=== PATIENT | female | born 1985 | race Caucasian/White ===

== ENCOUNTER 2016-06-19 13:54 | Inpatient (IN) | payer OTHER ==
--- NOTE | 2016-06-19 13:57 | PDOC ---
History of Present Illness - General History Source: Patient Exam Limitations: No Limitations - History of Present Illness Initial Comments: 06/19/16 14:38 The patient is a 31 year old female, with a significant past medical history of an eating disorder, who presents to the emergency department with nausea, vomiting, diarrhea, and abdominal pain since Tuesday. The patient reports that she is in a treatment center for an eating disorder for the past 16 days, and Tuesday night she began experiencing severe and constant abdominal pain which she describes as cramping sensation in nature. She reports that this cramping is localized to her abdomen and is a 7/10 in severity without modifying factors . She reports that the abdominal pain is exacerbated by eating food and movement. She also reports associated abdominal distention and exhaustion. The patient states that she Tuesday, Tuesday, and Tuesday she had 10 episodes of vomiting, and she had multiple episodes of diarrhea. She reports that she did not have any episodes of vomiting or diarrhea yesterday and is not nauseous upon presentation to the ED. She denies chest pain, shortness of breath, headache and dizziness. She denies fever, chills, hematochezia and mucus in her stool. She denies taking any antibiotics for the last few months. She reports that she went to [facility] for [employer] but has not traveled since. Last Menstrual Period: 06/03/16 Allergies: None Past surgical history: None Social History: Current everyday smoker (5 cigarettes per day), marijuana, last alcoholic drinks was 2 weeks ago. <Ashley Flores - Last Filed: 06/19/16 16:41> <Kenneth Armando - Last Filed: 06/19/16 16:47> - General Chief Complaint: Vomiting/Diarrhea Stated Complaint: VOMITING,DIARRHEA,ABD PAIN Time Seen by Provider: 06/19/16 13:56 Past History <Ashley Flores - Last Filed: 06/19/16 16:41> <Kenneth Armando - Last Filed: 06/19/16 16:47> - Past Medical History Allergies/Adverse Reactions: Allergies Allergy/AdvReac Type Severity Reaction Status Date / Time No Known Allergies Allergy Verified 06/19/16 13:55 Home Medications: Ambulatory Orders Escitalopram Oxalate [Lexapro -] 20 mg PO DAILY 01/21/17 L.acidoph,Paracasei, B.lactis [Probiotic] 1 each PO DAILY 06/19/16 Multivitamin [Poly-Vitamin] 1 each PO DAILY 06/19/16 Ondansetron [Zofran *Odt*] 8 mg SL TID PRN #4 od.tablet 06/19/16 Review of Systems - Review of Systems Able to Perform ROS?: Yes Comments:: 06/19/16 14:38 CONSTITUTIONAL: +exhaustion Absent: fever, chills, diaphoresis, generalized weakness, loss of appetite HEENT: Absent: rhinorrhea, nasal congestion, throat pain, throat swelling, difficulty swallowing, mouth swelling, ear pain, eye pain, visual Changes CARDIOVASCULAR: Absent: chest pain, syncope, palpitations, irregular heart rate, lightheadedness , peripheral edema RESPIRATORY: Absent: cough, shortness of breath, dyspnea with exertion, orthopnea, wheezing, stridor, hemoptysis GASTROINTESTINAL: +abdominal pain, +abdominal distention, +nausea, +vomiting, + diarrhea Absent: constipation, melena, hematochezia GENITOURINARY: Absent: dysuria, frequency, urgency, hesitancy, hematuria, flank pain, genital pain MUSCULOSKELETAL: Absent: myalgia, arthralgia, joint swelling SKIN: Absent: rash, itching, pallor HEMATOLOGIC/IMMUNOLOGIC: Absent: easy bleeding, easy bruising, lymphadenopathy, frequent infections ENDOCRINE: Absent: unexplained weight gain, unexplained weight loss, heat intolerance, cold intolerance NEUROLOGIC: Absent: headache, focal weakness or paresthesias, dizziness, unsteady gait, seizure, mental status changes, bladder or bowel incontinence PSYCHIATRIC: Absent: anxiety, depression, suicidal or homicidal ideation, hallucinations. <Ashley Flores - Last Filed: 06/19/16 16:41> *Physical Exam - Vital Signs Last Vital Signs Temp Pulse Resp BP Pulse Ox 97.8 F 95 H 18 126/95 100 06/19/16 13:55 06/19/16 13:55 06/19/16 13:55 06/19/16 13:55 06/19/16 13:55 - Physical Exam Comments: 06/19/16 14:39 GENERAL: Well developed, well nourished. Awake and alert. No acute distress. HEENT: +slightly dry mucous membranes Normocephalic, atraumatic. PERRLA, EOMI. No conjunctival pallor. Sclera are non- icteric. Moist mucous membranes. Oropharynx is clear. NECK: Supple. Full ROM. No JVD. Carotid pulses 2+ and symmetric, without bruits. No thyromegaly. No lymphadenopathy. CARDIOVASCULAR: Regular rate and rhythm. No murmurs, rubs, or gallops. Distal pulses are 2+ and symmetric. PULMONARY: No evidence of respiratory distress. Lungs clear to auscultation bilaterally. No wheezing, rales or rhonchi. ABDOMINAL: +tender to superficial and deep palpation in the epigastric and deep upper quadrant, +minimal abdominal distention Soft. No rebound or guarding. No organomegaly. Normoactive bowel sounds. MUSCULOSKELETAL Normal range of motion at all joints. No bony deformities or tenderness. No CVA tenderness. EXTREMITIES: No cyanosis. No clubbing. No edema. No calf tenderness. SKIN: Warm and dry. Normal capillary refill. No rashes. No jaundice. NEUROLOGICAL: Alert, awake, appropriate. Cranial nerves 2-12 intact. No deficits to light touch and temperature in face, upper extremities and lower extremities. No motor deficits in the in face, upper extremities and lower extremities. Normoreflexic in the upper and lower extremities. Normal speech. Toes are downgoing bilaterally. Gait is normal without ataxia. PSYCHIATRIC: Cooperative. Good eye contact. Appropriate mood and affect. No recent ingestion of river, stream or [place] water. No recent ingestion of raw meat. No recent ingestion of shellfish. No antibiotic use in the past 6 months. No recent travel outside of the [facility]. No sick contacts with similar symptoms. No blood or mucous noted in the stools. <Ashley Flores - Last Filed: 06/19/16 16:41> Heart Score/ECG Review - ECG Intrepretation Comment:: 06/19/16 15:37 Normal sinus rhythm at 90, normal axis, normal intervals, no ST changes <Kenneth Armando - Last Filed: 06/19/16 16:47> ED Treatment Course - LABORATORY CBC & Chemistry Diagram: 06/19/16 14:30 06/19/16 14:30 - RADIOLOGY Radiograph Interpretation: 06/19/16 16:40 CT / Abdomen and Pelvis CT With Contrast Reported by: Dr. Rubén Escobedo Reviewed by: Dr. Kenneth Armando Impression: Moderate small bowel obstruction dilation suspicious for partial SBO. Clinical correlation and follow-up recommended. <Ashley Flores - Last Filed: 06/19/16 16:41> - LABORATORY CBC & Chemistry Diagram: 06/19/16 14:30 06/19/16 14:30 <Kenneth Armando - Last Filed: 06/19/16 16:47> Medical Decision Making - Medical Decision Making 06/19/16 14:04 The patient is well-appearing and in no acute distress There is clinical evidence of mild dehydration Abdomen is minimally tender in the right upper quadrant and epigastrium Will begin IV fluid resuscitation Will obtain labs, urinalysis 06/19/16 15:33 Chemistries noted including: Hyponatremia Hypomagnesemia Hyperphosphatemia On repeat exam her abdomen remains distended Will will image abdomen and pelvis with CT We will replete magnesium 06/19/16 16:00 The patient is unable to drink further contrast Will CT without more oral contrast 06/19/16 16:45 CT noted with evidence of partial small bowel obstruction Will admit Will consult surgery Clinical impression: Partial small bowel obstrauction Hyponatremia Hypomagnesemia Hyperphosphatemia Case discussed in detail with admitting provider including history, physical exam and ancillary studies. Admitting physician has assumed care for the patient, will follow all pending diagnostics and will complete the evaluation and treatment. A portion of this note was documented by scribe services under my direction. I have reviewed the details of the note, within reason, and agree with the documentation with the following case summary and management plan written by me. <Kenneth Armando - Last Filed: 06/19/16 16:47> *DC/Admit/Observation/Transfer - Attestations Scribe Attestion: 06/19/16 14:39 Documentation prepared by JULISSA Araujo, acting as medical lab director for Kenneth Armando MD. <Ashley Flores - Last Filed: 06/19/16 16:41> - Discharge Dispostion Admit: Yes <Kenneth Armando - Last Filed: 06/19/16 16:47> Diagnosis at time of Disposition: Partial small bowel obstruction - Discharge Dispostion Condition at time of disposition: Improved - Prescriptions Prescriptions: Ondansetron [Zofran *Odt*] 8 mg SL TID PRN #4 od.tablet PRN Reason: Nausea & Vomiting - Patient Instructions Printed Discharge Instructions: Nausea and Vomiting-Adult, Diarrhea Additional Instructions: Return to the emergency department immediately with ANY new, persistent or worsening symptoms. You MUST call and follow up with your doctor tomorrow. Please make sure your doctor reviews the results of your emergency department evaluation.
[2016-06-19] MEDS ORDERED: DEXTROSE 5%-NORMAL SALINE 1,000 ML IV ONE (14:17)
[2016-06-19 14:37] LABS: MCH 29.6 pg (25.7-33.7); WHITE BLOOD COUNT 7.2 K/mm3 (4.0-10.0)
[2016-06-19 14:43] LABS: MEAN CELL VOLUME 89.8 fl (80-96); MEAN PLT VOLUME 6.8 fl (7.5-11.1); PLATELET COUNT 594 K/MM3 (134-434); RDW 14.5 % (11.6-15.6)
[2016-06-19 14:48] LABS: URINE BILIRUBIN Negative (NEGATIVE); URINE BLOOD Negative (NEGATIVE); URINE GLUCOSE (UA) Negative (NEGATIVE); URINE KETONE Negative (NEGATIVE); URINE LEUK ESTERASE Trace (NEGATIVE); URINE PROTEIN Negative (NEGATIVE); URINE UROBILINOGEN 1.0 E.U/dl (0.2-1.0)
[2016-06-19 14:50] LABS: URINE APPEARANCE CLOUDY; URINE COLOR AMBER
[2016-06-19 14:52] LABS: ALBUMIN 3.2 g/dl (3.5-5.0); ALK PHOS 51 U/L (32-92); ANION GAP 10 (8-16); BILIRUBIN,TOTAL 0.3 mg/dl (0.2-1.0); CALCIUM 9.6 mg/dl (8.4-10.2); CO2 30 mmol/L (22-28); CREATININE 0.6 mg/dl (0.6-1.3); GLUCOSE,RANDOM 108 mg/dl (74-106); MAGNESIUM 1.6 mg/dL (1.8-2.4); PHOSPHOROUS 6.3 mg/dl (2.5-4.6); SGOT/AST 15 U/L (10-42); SGPT/ALT 11 U/L (10-40); TOT PROT 6.5 g/dl (6.4-8.3)
[2016-06-19] MEDS ORDERED: MAGNESIUM SULFATE 2 GM in SODIUM CHLORIDE 100 ML IVPB ONE (15:33)
[2016-06-19 15:38] LABS: URINE NITRITE Positive (NEGATIVE)
[2016-06-19] MEDS ORDERED: SODIUM CHLORIDE 1,000 ML IV SCH (15:45)
[2016-06-19 15:58] LABS: PLATELET ESTIMATE INCREASED (NORMAL)
[2016-06-19] MEDS ORDERED: DEXTROSE 5%-NORMAL SALINE 1,000 ML IV SCH (17:00)
[2016-06-19 19:00] VITALS: BMI 15.0
--- NOTE | 2016-06-19 19:18 | HP ---
CHIEF COMPLAINT: Nausea, Vomiting, Abdominal Pain, Abdominal Distention PCP: HISTORY OF PRESENT ILLNESS: This is a 31 year old woman with a past medical history of Eating Disorder. Who presents to the emergency department with N/V/D, abdominal cramping, abdominal distention x 6 days. Patient is currently under treatment for the last 16 days at an Eating Disorder facility. Patient reports the abdominal cramping started on Tuesday given Mylanta, then Tuesday- Tuesday she started having non-bilious vomiting with diarrhea. Patient reports the vomiting has resolved and the diarrhea is less frequent. Patient denies fever, chills, cough, dizziness, CP, constipation, dysuria. ER course was notable for: (1) Na 129 (2) UA- cloudy, +nitrate, +trace leukocyte esterase (3) Recent Travel: [facility] 05/23- 05/27 PAST MEDICAL HISTORY: See HPI PAST SURGICAL HISTORY: None Social History: Smokin-5 Cigarettes/day Alcohol: Occasional- Mixed Drinks Drugs: Socially- Marijuana Family History: Father: Hypercholesterolemia Allergies No Known Allergies Allergy (Verified 06/19/16 13:55) HOME MEDICATIONS: Medication Instructions Recorded Escitalopram Oxalate [Lexapro -] 20 mg PO DAILY 06/19/16 L.acidoph,Paracasei, B.lactis 1 each PO DAILY 06/19/16 [Probiotic] Multivitamin [Poly-Vitamin] 1 each PO DAILY 06/19/16 [place]-3 Fatty Acids [Fish Oil] 720 mg PO DAILY 06/19/16 Ondansetron [Zofran *Odt*] 8 mg SL TID PRN #4 od.tablet 06/19/16 Prochlorperazine Maleate 5 mg PO PRN 06/19/16 [Compazine] Valerian Root 1,060 mg PO HS PRN 06/19/16 REVIEW OF SYSTEMS CONSTITUTIONAL: Absent: fever, chills, diaphoresis, generalized weakness, malaise, loss of appetite, weight change HEENT: Absent: rhinorrhea, nasal congestion, throat pain, throat swelling, difficulty swallowing, mouth swelling, ear pain, eye pain, visual changes CARDIOVASCULAR: Absent: chest pain, syncope, palpitations, irregular heart rate, lightheadedness , peripheral edema RESPIRATORY: Absent: cough, shortness of breath, dyspnea with exertion, orthopnea, wheezing, stridor, hemoptysis GASTROINTESTINAL: abdominal pain, abdominal distension, nausea, vomiting, diarrhea Absent: constipation, melena, hematochezia GENITOURINARY: Absent: dysuria, frequency, urgency, hesitancy, hematuria, flank pain, genital pain MUSCULOSKELETAL: Absent: myalgia, arthralgia, joint swelling, back pain, neck pain SKIN: Absent: rash, itching, pallor HEMATOLOGIC/IMMUNOLOGIC: Absent: easy bleeding, easy bruising, lymphadenopathy, frequent infections ENDOCRINE: Absent: unexplained weight gain, unexplained weight loss, heat intolerance, cold intolerance NEUROLOGIC: Absent: headache, focal weakness or paresthesias, dizziness, unsteady gait, seizure, mental status changes, bladder or bowel incontinence PSYCHIATRIC: Absent: anxiety, depression, suicidal or homicidal ideation, hallucinations. PHYSICAL EXAMINATION GENERAL: Cachectic, awake, alert, and fully oriented, in no acute distress. HEAD: Normal with no signs of trauma. EYES: Pupils equal, round and reactive to light, extraocular movements intact, sclera anicteric, conjunctiva clear. No lid lag. EARS, NOSE, THROAT: Ears normal, nares patent, oropharynx clear without exudates. Moist mucous membranes. NECK: Normal range of motion, supple without lymphadenopathy, JVD, or masses. LUNGS: Breath sounds equal, clear to auscultation bilaterally. No wheezes, and no crackles. No accessory muscle use. HEART: Regular rate and rhythm, normal S1 and S2 without murmur, rub or gallop. ABDOMEN: Soft, tender to epigastrium, umbilical areas, mildly distended, hypoactive bowel sounds, no guarding, no rebound, no masses. No hepatomegaly or splenomegaly. MUSCULOSKELETAL: Normal range of motion at all joints. No bony deformities or tenderness. No CVA tenderness. UPPER EXTREMITIES: 2+ pulses, warm, well-perfused. No cyanosis. No clubbing. Cap refill <2 seconds. No peripheral edema. LOWER EXTREMITIES: 2+ pulses, warm, well-perfused. No calf tenderness. No peripheral edema. NEUROLOGICAL: Cranial nerves II-XII intact. Normal speech. Normal gait. PSYCHIATRIC: Cooperative. Good eye contact. Appropriate mood and affect. SKIN: Warm, dry, normal turgor, tattoos, no rashes or lesions noted. Laboratory Results - last 24 hr 06/19/16 06/19/16 06/19/16 14:30 14:30 14:35 WBC 7.2 RBC 3.86 Hgb 11.4 Hct 34.6 MCV 89.8 MCHC 33.0 RDW 14.5 Plt Count 594 H D MPV 6.8 L Neutrophils % 61.0 D Lymphocytes % 19.0 D Monocytes % 15.0 H D Eosinophils % 2.0 Band Neutrophils 3.0 Platelet Estimate Increased Sodium 129 L Potassium 3.7 Chloride 89 L Carbon Dioxide 30 H Anion Gap 10 BUN 11 Creatinine 0.6 Creat Clearance w eGFR > 60 Random Glucose 108 H Calcium 9.6 Phosphorus 6.3 H D Magnesium 1.6 L D Total Bilirubin 0.3 AST 15 ALT 11 Alkaline Phosphatase 51 Total Protein 6.5 Albumin 3.2 L Lipase 32 Urine Color Pallavi Urine Appearance Cloudy Urine pH 7.0 Ur Specific [place] 1.010 Urine Protein Negative Urine Glucose (UA) Negative Urine Ketones Negative Urine Blood Negative Urine Nitrite Positive Urine Bilirubin Negative Urine Urobilinogen 1.0 e.u/dl Ur Leukocyte Esterase Trace Urine HCG, Qual 06/19/16 14:35 WBC RBC Hgb Hct MCV MCHC RDW Plt Count MPV Neutrophils % Lymphocytes % Monocytes % Eosinophils % Band Neutrophils Platelet Estimate Sodium Potassium Chloride Carbon Dioxide Anion Gap BUN Creatinine Creat Clearance w eGFR Random Glucose Calcium Phosphorus Magnesium Total Bilirubin AST ALT Alkaline Phosphatase Total Protein Albumin Lipase Urine Color Urine Appearance Urine pH Ur Specific [place] Urine Protein Urine Glucose (UA) Urine Ketones Urine Blood Urine Nitrite Urine Bilirubin Urine Urobilinogen Ur Leukocyte Esterase Urine HCG, Qual Negative RADIOLOGY Radiograph Interpretation: 06/19/16 16:40 CT / Abdomen and Pelvis CT With Contrast Reported by: Dr. Rubén Escobedo Impression: Moderate small bowel obstruction dilation suspicious for partial SBO. Clinical correlation and follow-up recommended. ASSESSMENT/PLAN: This is a 31 year old woman with a PMHx of: Eating Disorder. Who presents to the ED with abdominal pain, N/V/D. Admitted for Partial SBO for further evaluation of their emergent condition Plan: 1. Partial SBO - Likely due to colitis - CTAP- Moderate small bowel obstruction dilation suspicious for partial SBO. - NPO - IVF - Appreciate Surgical Consult - Pain Mgmt- Ofirmev IV prn 2. Hyponatremia - Likely due to hypovalemic status secondary to gastric losses - Given NS 1.5L bolus in ED - Continue IVF - Na correction 132 3. Hypomagnesemia - Likely due to gastric loss - Repleted with Mg Sulfate 2gm - EKG- Normal sinus rhythm at 90, normal axis, normal intervals, no ST changes - Monitor Magnesium 4. Asymptomatic Bacteriuria - Patient denies dysuria, burning, and frequency - On exam: no CVA tenderness - Will not treat with Empiric ABX unless patient becomes symptomatic or condition worsens. 5. Eating Disorder - Continue treatments in outpatient upon d/c 6. F/E/N - D5NS@100ml/hr - Mg repleted, Na monitor - NPO 7. DVT/PPI Prophylaxis - OOB - SCDs - PPI Code Status: Patient is a Full Code Problem List - Problem (1) Partial small bowel obstruction Code(s): K56.69 - OTHER INTESTINAL OBSTRUCTION (2) Vomiting and diarrhea Code(s): R11.10 - VOMITING, UNSPECIFIED R19.7 - DIARRHEA, UNSPECIFIED (3) Eating disorder Code(s): F50.9 - EATING DISORDER, UNSPECIFIED (4) Hyponatremia Code(s): E87.1 - HYPO-OSMOLALITY AND HYPONATREMIA (5) Hypomagnesemia Code(s): E83.42 - HYPOMAGNESEMIA (6) DVT prophylaxis Code(s): AXD8002 - Visit type - Emergency Visit Emergency Visit: Yes ED Registration Date: 06/19/16 Care time: The patient presented to the Emergency Department on the above date and was hospitalized for further evaluation of their emergent condition. - New Patient This patient is new to me today: Yes Date on this admission: 06/19/16 - Critical Care Critical Care patient: No
[2016-06-19 21:13] LABS: CALCIUM 8.5 mg/dl (8.4-10.2); CREATININE 0.6 mg/dl (0.6-1.3)
[2016-06-20] MEDS ORDERED: ACETAMINOPHEN 1000 MG/100 ML VIAL (NON FORMULARY) IVPB PRN ×2 (03:31→03:43)
[2016-06-20 07:55] LABS: MCH 30.8 pg (25.7-33.7); MCHC 33.4 g/dl (32.0-36.0); MEAN CELL VOLUME 92.2 fl (80-96); MEAN PLT VOLUME 6.9 fl (7.5-11.1); PLATELET COUNT 420 K/MM3 (134-434); RDW 15.2 % (11.6-15.6); WHITE BLOOD COUNT 6.4 K/mm3 (4.0-10.0)
[2016-06-20 08:29] LABS: CALCIUM 8.1 mg/dL (8.5-10.1)
[2016-06-20 08:31] LABS: CREATININE 0.4 mg/dL (0.55-1.02)
[2016-06-20 08:38] LABS: INR 1.03 (0.82-1.09); PROTHROMBIN TIME (PATIENT) 11.3 SEC (9.98-11.88)
--- NOTE | 2016-06-20 15:02 | CONSULT ---
Consult Consult Specialty:: Surgery Reason for Consultation:: Bowel obstruction - History of Present Illness Chief Complaint: Abdominal pain and distention History of Present Illness: 31 female with an eating disorder receiving treatment at a facility presents to the ER for abdominal pain and distention Pain started on Tuesday 1 week ago and worsened over the next 2-3 days Her abdomen became more distended Did not pass flatus or a BM during that time period No previous episodes Since admission her pain and distention has improved and she has passed flatus - History Source History Provided By: Patient Limitations to Obtaining History: No Limitations - Past Medical History Additional Medical History: Eating disorder - Alcohol/Substance Use Hx Alcohol Use: Yes - Smoking History Smoking history: Current every day smoker Have you smoked in the past 12 months: No Aproximately how many cigarettes per day: 5 - Social History ADL: Independent Home Medications - Allergies Allergies/Adverse Reactions: Allergies Allergy/AdvReac Type Severity Reaction Status Date / Time No Known Allergies Allergy Verified 06/19/16 13:55 - Home Medications Home Medications: Ambulatory Orders Escitalopram Oxalate [Lexapro -] 20 mg PO DAILY 06/19/16 L.acidoph,Paracasei, B.lactis [Probiotic] 1 each PO DAILY 06/19/16 Multivitamin [Poly-Vitamin] 1 each PO DAILY 06/19/16 [place]-3 Fatty Acids [Fish Oil] 720 mg PO DAILY 06/19/16 Ondansetron [Zofran *Odt*] 8 mg SL TID PRN #4 od.tablet 06/19/16 Prochlorperazine Maleate [Compazine] 5 mg PO PRN 06/19/16 Valerian Root 1,060 mg PO HS PRN 06/19/16 Family Disease History - Family Disease History Family History: Unremarkable Review of Systems - Review of Systems Constitutional: denies: Chills, Fever Cardiovascular: denies: Chest Pain Respiratory: denies: Cough Gastrointestinal: reports: Abdominal Pain, Nausea. denies: Diarrhea Genitourinary: reports: No Symptoms Neurological: denies: Change in LOC Pain Intensity: 3 Physical Exam Vital Signs: Vital Signs Temperature 98.0 F 06/20/16 14:42 Pulse Rate 88 06/20/16 14:42 Respiratory Rate 21 06/20/16 14:42 Blood Pressure 112/69 06/20/16 14:42 O2 Sat by Pulse Oximetry (%) 100 06/20/16 14:42 Constitutional: Yes: Calm, Thin HENT: Yes: WNL Neck: Yes: Supple Cardiovascular: Yes: Regular Rate and Rhythm Respiratory: Yes: CTA Bilaterally Gastrointestinal: Yes: Soft, Distention (Mild distention). No: Tenderness, Tenderness, Rebound Extremities: Yes: WNL Neurological: Yes: Alert, Oriented Labs: CBC, BMP 06/20/16 06:00 06/20/16 06:00 Imaging - Results Cat Scan: Report Reviewed, Image Reviewed Problem List - Problems (1) Eating disorder Code(s): F50.9 - EATING DISORDER, UNSPECIFIED (2) Hypomagnesemia Code(s): E83.42 - HYPOMAGNESEMIA (3) Hyponatremia Code(s): E87.1 - HYPO-OSMOLALITY AND HYPONATREMIA (4) Partial small bowel obstruction Code(s): K56.69 - OTHER INTESTINAL OBSTRUCTION (5) Vomiting and diarrhea Code(s): R11.10 - VOMITING, UNSPECIFIED R19.7 - DIARRHEA, UNSPECIFIED Assessment/Plan 31 female with an eating disorder treated at a facility with distended loops of small bowel CT demonstrated possible partial small bowel obstruction Pain and distention are improving Passing flatus Clears Seral abdominal exams
--- NOTE | 2016-06-20 21:18 | PN ---
Physical Exam: SUBJECTIVE: Patient seen and examined. Feeling much improved. Passing flatus, feels she may have a BM soon. OBJECTIVE: Vital Signs Period Temp Pulse Resp BP Sys/Heard Pulse Ox Last 24 Hr 98.0 F-98.6 F 78-88 18-21 104-115/62-76 95-100 GENERAL: The patient is awake, alert, and fully oriented, in no acute distress. HEAD: Normal with no signs of trauma. EYES: PERRL, extraocular movements intact, sclera anicteric, conjunctiva clear. No ptosis. LUNGS: Breath sounds equal, clear to auscultation bilaterally, no wheezes, no crackles, no accessory muscle use. HEART: Regular rate and rhythm, S1, S2 without murmur, rub or gallop. ABDOMEN: Soft, nontender, nondistended, hypoactive bowel sounds EXTREMITIES: 2+ pulses, warm, well-perfused, no edema. NEUROLOGICAL: Cranial nerves II through XII grossly intact. Normal speech, gait not observed. PSYCH: Normal mood, normal affect. SKIN: Warm, dry, normal turgor, no rashes or lesions noted Laboratory Results - last 24 hr 06/19/16 06/19/16 06/20/16 20:45 21:18 06:00 WBC 6.4 RBC 3.55 L Hgb 10.9 Hct 32.7 MCV 92.2 MCHC 33.4 RDW 15.2 Plt Count 420 MPV 6.9 L Neutrophils % Y Lymphocytes % Y INR Sodium Potassium Chloride Carbon Dioxide Anion Gap BUN Creatinine Random Glucose Calcium Magnesium Blood Type A POSITIVE A POSITIVE Antibody Screen Negative 06/20/16 06/20/16 06:00 06:00 WBC RBC Hgb Hct MCV MCHC RDW Plt Count MPV Neutrophils % Lymphocytes % INR 1.03 Sodium 139 Potassium 3.9 Chloride 103 Carbon Dioxide 27 Anion Gap 9 BUN 6 L Creatinine 0.4 L Random Glucose 82 Calcium 8.1 L Magnesium 2.0 D Blood Type Antibody Screen Current Medications Generic Name Dose Route Start Last Admin Trade Name Freq PRN Reason Stop Dose Admin Dextrose/Sodium Chloride 1,000 mls @ 100 mls/hr 06/19/16 17:00 06/19/16 18:28 D5-Ns - IV 100 mls/hr ASDIR MYRA Administration ASSESSMENT/PLAN: 06/19/16 16:40 CT / Abdomen and Pelvis CT With Contrast Reported by: Dr. Rubén Escobedo Impression: Moderate small bowel obstruction dilation suspicious for partial SBO. Clinical correlation and follow-up recommended. ASSESSMENT/PLAN: This is a 31 year old woman with a PMH of an eating disorder who presented to the ED with abdominal pain, admittd for a possible partial SBO. 1. Partial SBO - CTAP- Moderate small bowel obstruction dilation suspicious for partial SBO. - tolerating clears - IVF - repeat KUB in am 2. Hyponatremia, resolved 3. Hypomagnesemia, resolved 4. Asymptomatic Bacteriuria - Patient denies dysuria, burning, and frequency; afebrile, no elevation in WBC - no antibiotics for now 5. Eating Disorder - Continue treatments in outpatient upon d/c DVT prophylaxis: oob, ambulation Code Status: Patient is a Full Code Visit type - Emergency Visit Emergency Visit: Yes ED Registration Date: 06/19/16 Care time: The patient presented to the Emergency Department on the above date and was hospitalized for further evaluation of their emergent condition. - New Patient This patient is new to me today: Yes Date on this admission: 06/20/16 - Critical Care Critical Care patient: No
--- NOTE | 2016-06-20 23:33 | EKG ---
Test Reason : Blood Pressure : / mmHG Vent. Rate : 091 BPM Atrial Rate : 091 BPM P-R Int : 140 ms QRS Dur : 084 ms QT Int : 372 ms P-R-T Axes : 067 073 053 degrees QTc Int : 457 ms NORMAL SINUS RHYTHM NORMAL ECG NO PREVIOUS ECGS AVAILABLE Confirmed by SANYA MORAN, PATRICIA ([id number]) on 06/20/2016 11:32:55 PM Referred By: AUBRIE TRIPATHI Confirmed By:PATRICIA SEGUNDO MD
[2016-06-21 06:25] VITALS: BP 114/70; PULSE 74; TEMP 98.1
--- NOTE | 2016-06-21 12:25 | DS ---
[id number] soft tray ambulatatory at bedside no nausea or vomiting. OBJECTIVE: patient is marybeth is a 31 year old woman with a past medical history of Eating Disorder. Who presents to the emergency department with N/V/D, abdominal cramping, abdominal distention x 6 days. Patient is currently under treatment for the last 16 days at an Eating Disorder facility. Patient reports the abdominal cramping started on Tuesday given Mylanta, then Tuesday- Tuesday she started having non-bilious vomiting with diarrhea. Patient reports the vomiting has resolved and the diarrhea is less frequent. Patient denies fever, chills, cough, dizziness, CP, constipation, dysuria. ER course was notable for: (1) Na 129 (2) UA- cloudy, +nitrate, +trace leukocyte esterase Vital Signs Period Temp Pulse Resp BP Sys/Heard Pulse Ox Last 24 Hr 98.0 F-98.6 F 74-88 18-21 112-115/69-76 99-100 PHYSICAL EXAM GENERAL: The patient is awake, alert, and fully oriented, in no acute distress. HEAD: Normal with no signs of trauma. EYES: PERRL, extraocular movements intact, sclera anicteric, conjunctiva clear. ENT: Ears normal, nares patent, oropharynx clear without exudates, moist mucous membranes. NECK: Trachea midline, full range of motion, supple. LUNGS: Breath sounds equal, clear to auscultation bilaterally, no wheezes, no crackles, no accessory muscle use. HEART: Regular rate and rhythm, S1, S2 without murmur, rub or gallop. ABDOMEN: Soft, flat, nontender, nondistended, normoactive bowel sounds, no guarding, no rebound, no hepatosplenomegaly, no masses. EXTREMITIES: 2+ pulses, warm, well-perfused, no edema. NEUROLOGICAL: Cranial nerves II through XII grossly intact. Normal speech, gait not observed. PSYCH: Normal mood, normal affect. SKIN: Warm, dry, normal turgor, no rashes or lesions noted. LABS CBC WBC 6.4 K/mm3 (4.0-10.0) 06/20/16 06:00 RBC 3.55 M/mm3 (3.60-5.2) L 06/20/16 06:00 Hgb 10.9 GM/dL (10.7-15.3) 06/20/16 06:00 Hct 32.7 % (32.4-45.2) 06/20/16 06:00 MCV 92.2 fl (80-96) 06/20/16 06:00 MCHC 33.4 g/dl (32.0-36.0) 06/20/16 06:00 RDW 15.2 % (11.6-15.6) 06/20/16 06:00 Plt Count 420 K/MM3 (134-434) 06/20/16 06:00 MPV 6.9 fl (7.5-11.1) L 06/20/16 06:00 Neutrophils % Y 06/20/16 06:00 Lymphocytes % Y 06/20/16 06:00 Monocytes % 15.0 % (3.8-10.2) H D 06/19/16 14:30 Eosinophils % 2.0 % (0-4.5) 06/19/16 14:30 Band Neutrophils 3.0 % (0-10) 06/19/16 14:30 Platelet Estimate Increased (NORMAL) 06/19/16 14:30 CMP Sodium 139 mmol/L (136-145) 06/20/16 06:00 Potassium 3.9 mmol/L (3.5-5.1) 06/20/16 06:00 Chloride 103 mmol/L (98-107) 06/20/16 06:00 Carbon Dioxide 27 mmol/L (21-32) 06/20/16 06:00 Anion Gap 9 (8-16) 06/20/16 06:00 BUN 6 mg/dL (7-18) L 06/20/16 06:00 Creatinine 0.4 mg/dL (0.55-1.02) L 06/20/16 06:00 Creat Clearance w eGFR > 60 (>60) 06/19/16 14:30 Random Glucose 82 mg/dL (74-106) 06/20/16 06:00 Calcium 8.1 mg/dL (8.5-10.1) L 06/20/16 06:00 Phosphorus 6.3 mg/dl (2.5-4.6) H D 06/19/16 14:30 Magnesium 2.0 mg/dL (1.8-2.4) D 06/20/16 06:00 Total Bilirubin 0.3 mg/dl (0.2-1.0) 06/19/16 14:30 AST 15 U/L (10-42) 06/19/16 14:30 ALT 11 U/L (10-40) 06/19/16 14:30 Alkaline Phosphatase 51 U/L (32-92) 06/19/16 14:30 Total Protein 6.5 g/dl (6.4-8.3) 06/19/16 14:30 Albumin 3.2 g/dl (3.5-5.0) L 06/19/16 14:30 Lipase 32 U/L (22-51) 06/19/16 14:30 Laboratory Tests 06/19/16 06/19/16 14:35 14:35 Urine Color Pallavi Urine Appearance Cloudy Urine pH 7.0 Ur Specific [place] 1.010 Urine Protein Negative Urine Glucose (UA) Negative Urine Ketones Negative Urine Blood Negative Urine Nitrite Positive Urine Bilirubin Negative Urine Urobilinogen 1.0 e.u/dl Ur Leukocyte Esterase Trace Urine HCG, Qual Negative IMAGING 06/19/16 16:40 CT / Abdomen and Pelvis CT With Contrast Reported by: Dr. Rubén Escobedo Impression: Moderate small bowel obstruction dilation suspicious for partial SBO. Clinical correlation and follow-up recommended. HOSPITAL COURSE: patient was admitted for a partial SBO, she was initially placed on bowel rest and was given IV hydration., repeat KUB resulted as resolved SBO, patient is passing flatus, she has tolerated soft bland diet. patient was noted to be hyponatremic upon arrival which resolved after IV hydration. Urinalysis was positive for nitrates, however patient is asymptomatic. Patient remained afebrile no leukocytosis noted antibiotics was held. patient does have a past medical history of anorexia nervosa, she currently attempted to inpatient treatment Plan: Resume diet Continue treatment at eating disorder unit Date of Admission:06/19/16 Date of Discharge: 06/21/16 Minutes to complete discharge: 45 Discharge Summary Reason For Visit: PARTIAL SMALL BOWEL OBSTRUCTION Current Active Problems DVT prophylaxis (Acute) Eating disorder (Acute) Hypomagnesemia (Acute) Hyponatremia (Acute) Partial small bowel obstruction (Acute) Condition: Improved - Instructions Diet, Activity, Other Instructions: Resume soft bland diet resume all medications as prescribed Return to the emergency department immediately with ANY new, persistent or worsening symptoms. You MUST call and follow up with your doctor tomorrow. Please make sure your doctor reviews the results of your emergency department evaluation. Disposition: HOME - Home Medications Comprehensive Discharge Medication List: Ambulatory Orders Escitalopram Oxalate [Lexapro -] 20 mg PO DAILY 06/19/16 LKennyacidoph,Paracflorini, B.lactis [Probiotic] 1 each PO DAILY 06/19/16 Multivitamin [Poly-Vitamin] 1 each PO DAILY 06/19/16 [place]-3 Fatty Acids [Fish Oil] 720 mg PO DAILY 06/19/16 Ondansetron [Zofran *Odt*] 8 mg SL TID PRN #4 od.tablet 06/19/16 Prochlorperazine Maleate [Compazine] 5 mg PO PRN 06/19/16 Valerian Root 1,060 mg PO HS PRN 06/19/16 This patient is new to me today: Yes Date on this admission: 06/21/16 Emergency Visit: Yes ED Registration Date: 06/19/16 Care time: The patient presented to the Emergency Department on the above date and was hospitalized for further evaluation of their emergent condition. Critical Care patient: No - Discharge Referral Referred to [facility] Med P.C.: No
[2016-06-21] MEDS ORDERED: ESCITALOPRAM OXALATE 20 MG TABLET (FP) PO SCH (12:30)
[2016-06-21] MEDS ORDERED: KETOROLAC TROMETHAMINE 30 MG/1 ML VIAL IVPUSH ONE (12:45)
--- NOTE | 2016-06-21 14:29 | PN ---
Progress Note (short form) - Note Progress Note: Pt seen earlier this am. She states that she tolerated clears liquids without any nausea or emesis. She had loose stools(non-bloody) yesterday. Her abdominal pain is gone and she feels less bloated. Vital Signs Period Temp Pulse Resp BP Sys/Heard Pulse Ox Last 24 Hr 98.0 F-98.6 F 74-88 18-21 112-115/69-76 99-100 PE: GEN: appears comfortable ABD: soft, non-distended, non-tender CBC, BMP 06/20/16 06:00 06/20/16 06:00 AXR- less dilated small bowel Problem List - Problems (1) Partial small bowel obstruction Assessment/Plan: Improved and clinically non-tender Electrolytes WNL. S/w Dr. Zacarias and plan to advance diet as tolerated and discharge when tolerating soft/regular diet. Patient has a history of an eating disorder and plan is for follow-up with her clinic/PMD Return to the ER with any persistant voimiting/abd pain/fevers. Code(s): K56.69 - OTHER INTESTINAL OBSTRUCTION
== END 2016-06-21 13:13 | disposition home or self-care (01) | DRG 389 ==
LOC: FER 13:54 → FM/S 18:42
PROVIDERS: ADMIT Internal Medicine; ATTEND Nurse Practitioner Family
DX: K56.69 Other intestinal obstruction (principal); E87.1 Hypo-osmolality and hyponatremia; E83.42 Hypomagnesemia; F50.9 Eating disorder, unspecified; R11.10 Vomiting, unspecified; R19.7 Diarrhea, unspecified; F17.210 Nicotine dependence, cigarettes, uncomplicated
CPT/HCPCS: 36415; 74000-TC; 74177-TC; 80048; 80053; 81003; 83690; 83735; 84100; 84703; 85025; 85610; 86850; 86900; 86901; 93005; 99282-25

== ENCOUNTER 2016-06-27 09:56 | Inpatient (IN) | payer OTHER ==
[2016-06-27] MEDS ORDERED: ONDANSETRON 4 MG/2 ML VIAL IVPB ONE ×2 (10:13→13:05)
[2016-06-27 10:14] VITALS: BMI 14.5
[2016-06-27] MEDS ORDERED: SODIUM CHLORIDE 1,000 ML IV SCH (10:15)
--- NOTE | 2016-06-27 10:19 | PDOC ---
History of Present Illness - General Chief Complaint: Nausea/Vomiting Stated Complaint: nausea, abd pain Time Seen by Provider: 06/27/16 10:03 - History of Present Illness Initial Comments: 06/27/16 10:14 31-year-old female with a past medical history of anorexia nervosa, who is an inpatient and eating disorder unit currently Patient was admitted here on 06/19/16 for a partial SBO, of unknown origin (no prior abdominal surgery)-thought to be possibly due to refeeding after long history of anorexia nervosa She was managed conservatively, and discharged on 06/21, with resolution of symptoms Last night, patient developed upper abdominal discomfort and nausea, and vomited once There was no blood or coffee grounds in her vomitus She denies any diarrhea or abdominal distention She states she had a normal bowel movement in 3 AM, and has been passing flatus since about 3 AM She denies any fevers or chills She denies any dysuria urgency or frequency LMP-06/21/16-normal She denies any other complaints at this time, and the remainder of the systems is negative Past History - Past Medical History Allergies/Adverse Reactions: Allergies Allergy/AdvReac Type Severity Reaction Status Date / Time No Known Allergies Allergy Verified 06/19/16 13:55 Home Medications: Ambulatory Orders Escitalopram Oxalate [Lexapro -] 20 mg PO DAILY 06/19/16 L.acidoph,Paracasei, B.lactis [Probiotic] 1 each PO DAILY 06/19/16 Multivitamin [Poly-Vitamin] 1 each PO DAILY 06/19/16 [place]-3 Fatty Acids [Fish Oil] 720 mg PO DAILY 06/19/16 Ondansetron [Zofran *Odt*] 8 mg SL TID PRN #4 od.tablet 06/19/16 Prochlorperazine Maleate [Compazine] 5 mg PO PRN 06/19/16 Valerian Root 1,060 mg PO HS PRN 06/19/16 Melatonin 5 mg PO HS 06/27/16 Psychiatric Problems: Yes (ANXIETY) - Psycho/Social/Smoking Cessation Hx Anxiety: Yes Suicidal Ideation: No Smoking History: Current every day smoker Have you smoked in the past 12 months: No Number of Cigarettes Smoked Daily: 5 'Breaking Loose' booklet given: 06/19/16 Hx Alcohol Use: Yes Drug/Substance Use Hx: Yes (WEED) Substance Use Type: Marijuana *Physical Exam - Physical Exam Comments: 06/27/16 10:16 Physical exam GENERAL: The patient is awake, alert, and fully oriented, and in no apparent distress. HEAD: Normal with no signs of trauma. EYES: Sclera anicteric ENT: Moist mucous membranes. NECK: Normal range of motion, supple LUNGS: Breath sounds equal, clear to auscultation bilaterally. No wheezes, and no crackles. HEART: Regular rate and rhythm, normal S1 and S2 without murmur, rub or gallop. ABDOMEN: hypoactive but present bowel sounds, abdomen is soft There is mild upper midepigastric tenderness to palpation without guarding or rebound There is minimal other tenderness to palpation There is no hepatosplenomegaly There is no CVA tenderness EXTREMITIES: Normal range of motion, no edema. No clubbing or cyanosis. No cords, erythema, or tenderness. NEUROLOGICAL: Cranial nerves II through XII grossly intact. Normal speech, normal gait. PSYCH: Normal mood, normal affect. SKIN: Warm, Dry, normal turgor, no rashes or lesions noted. ED Treatment Course - LABORATORY CBC & Chemistry Diagram: 06/28/16 08:00 06/28/16 08:00 - RADIOLOGY Radiology Studies Ordered: Category Date Time Status ABDOMEN FLAT & UPRIGHT [RAD] Stat Radiology 06/27/16 10:12 Ordered Medical Decision Making - Medical Decision Making 06/27/16 10:19 Patient with a recent SBO, who presents with some abdominal pain and one episode of vomiting Her CAT scan from 06/19/16 showed moderate small bowel dilatation suspicious for partial SBO She was treated conservatively and resolved She now started with abdominal pain and vomiting, but did have a normal bowel movement at 3 AM, and has been passing flatus since her bowel movement at 3 AM Will start with a flat and upright 2 view abdomen 06/27/16 11:27 Laboratory Results - last 24 hr 06/27/16 06/27/16 10:14 10:14 WBC 15.6 H RBC 3.78 Hgb 11.2 Hct 33.6 MCV 89.0 MCHC 33.3 RDW 15.4 Plt Count 522 H MPV 6.6 L Sodium 134 L Potassium 4.2 Chloride 98 Carbon Dioxide 26 Anion Gap 10 BUN 9 Creatinine 0.5 L Creat Clearance w eGFR > 60 Random Glucose 102 Calcium 9.1 Magnesium 1.8 Total Bilirubin 0.5 D AST 16 D ALT 10 Alkaline Phosphatase 40 Total Protein 6.2 L Albumin 3.1 L Lipase 74 H Two-view abdomen series flat and upright Partial SBO There are focally dilated loops of small bowel in the left abdomen and left pelvis, with air-fluid levels Impression-recurrent partial SBO Patient just had a CT scan a few days ago-would not repeat at this time ( although would consider with elevated WBC) 06/27/16 11:35 Case discussed with hospitalist-will admit *DC/Admit/Observation/Transfer Diagnosis at time of Disposition: Partial small bowel obstruction - Discharge Dispostion Admit: Yes
[2016-06-27] MEDS ORDERED: ONDANSETRON 4 MG/2 ML VIAL ONE ×2 (10:29→13:17)
[2016-06-27 10:37] LABS: MCH 29.6 pg (25.7-33.7); MCHC 33.3 g/dl (32.0-36.0); MEAN PLT VOLUME 6.6 fl (7.5-11.1); PLATELET COUNT 522 K/MM3 (134-434); RDW 15.4 % (11.6-15.6); WHITE BLOOD COUNT 15.6 K/mm3 (4.0-10.0)
[2016-06-27 11:00] LABS: ALBUMIN 3.1 g/dl (3.5-5.0); ALK PHOS 40 U/L (32-92); ANION GAP 10 (8-16); BILIRUBIN,TOTAL 0.5 mg/dl (0.2-1.0); CALCIUM 9.1 mg/dl (8.4-10.2); CO2 26 mmol/L (22-28); CREATININE 0.5 mg/dl (0.6-1.3); GLUCOSE,RANDOM 102 mg/dl (74-106); MAGNESIUM 1.8 mg/dL (1.8-2.4); SGOT/AST 16 U/L (10-42); SGPT/ALT 10 U/L (10-40); TOT PROT 6.2 g/dl (6.4-8.3)
[2016-06-27 11:29] LABS: PH,URINE 7.5 (4.5-8); URINE APPEARANCE Clear; URINE BILIRUBIN Negative (NEGATIVE); URINE BLOOD Negative (NEGATIVE); URINE GLUCOSE (UA) Negative (NEGATIVE); URINE KETONE Negative (NEGATIVE); URINE LEUK ESTERASE Negative (NEGATIVE); URINE NITRITE Negative (NEGATIVE); URINE PROTEIN Negative (NEGATIVE); URINE UROBILINOGEN 0.2 E.U/dl (0.2-1.0)
[2016-06-27 11:32] LABS: URINE COLOR YELLOW
[2016-06-27] MEDS ORDERED: ONDANSETRON 4 MG/2 ML VIAL IVPB PRN (13:41)
--- NOTE | 2016-06-27 13:41 | HP ---
CHIEF COMPLAINT: Abdominal pain, nausea, vomiting PCP: JESSI Pedraza at [facility] in [place] ([phone]) HISTORY OF PRESENT ILLNESS: 31 year-old woman with a longstanding history of anorexia and who is presently inpatient at [facility], a residential program for the treatment of eating disorders. She presents to the ED today with abdominal pain, nausea, and vomiting since last night. Patient was hospitalized from 06/19-06/21/16 here at for a partial SBO and hyponatremia. She was treated conservatively with bowel rest and IV fluids. She returned to the facility and has been following a regular diet for the past 5 days. Last night she developed abdominal pain which felt similar to the pain she had previously. She went to bed. When she awoke this morning she felt nauseous and vomited her dinner from last night as well as bile so she came to the ED. KUB imaging shows a partial SBO. She had a bowel movement yesterday which she says was normal. She thinks she has been passing flatus but is not sure. She denies fever, sweats, chills. ER course was notable for: (1) T 98.4, BP 124/70, p 87 (2) WBC 15.6 (3) KUB xray: possible SBO Recent Travel: no PAST MEDICAL HISTORY: Anorexia PAST SURGICAL HISTORY: None reported Smokin-5 Cigarettes/day Alcohol: Occasional- Mixed Drinks Drugs: Socially- Marijuana Family History: Father: Hypercholesterolemia Allergies No Known Allergies Allergy (Verified 06/19/16 13:55) HOME MEDICATIONS: Medication Instructions Recorded Escitalopram Oxalate [Lexapro -] 20 mg PO DAILY 06/19/16 L.acidoph,Paracasei, B.lactis 1 each PO DAILY 06/19/16 [Probiotic] Multivitamin [Poly-Vitamin] 1 each PO DAILY 06/19/16 [place]-3 Fatty Acids [Fish Oil] 720 mg PO DAILY 06/19/16 Ondansetron [Zofran *Odt*] 8 mg SL TID PRN #4 od.tablet 06/19/16 Prochlorperazine Maleate 5 mg PO PRN 06/19/16 [Compazine] Valerian Root 1,060 mg PO HS PRN 06/19/16 Melatonin 5 mg PO HS 06/27/16 REVIEW OF SYSTEMS CONSTITUTIONAL: Absent: fever, chills, diaphoresis, generalized weakness, malaise, loss of appetite, weight change HEENT: Absent: rhinorrhea, nasal congestion, throat pain, throat swelling, difficulty swallowing, mouth swelling, ear pain, eye pain, visual changes CARDIOVASCULAR: Absent: chest pain, syncope, palpitations, irregular heart rate, lightheadedness , peripheral edema RESPIRATORY: Absent: cough, shortness of breath, dyspnea with exertion, orthopnea, wheezing, stridor, hemoptysis GASTROINTESTINAL: Present: abdominal pain, nausea, vomiting x 1 Absent: abdominal distension, diarrhea, constipation, melena, hematochezia GENITOURINARY: Absent: dysuria, frequency, urgency, hesitancy, hematuria, flank pain, genital pain MUSCULOSKELETAL: Absent: myalgia, arthralgia, joint swelling, back pain, neck pain SKIN: Absent: rash, itching, pallor HEMATOLOGIC/IMMUNOLOGIC: Absent: easy bleeding, easy bruising, lymphadenopathy, frequent infections ENDOCRINE: Absent: unexplained weight gain, unexplained weight loss, heat intolerance, cold intolerance NEUROLOGIC: Absent: headache, focal weakness or paresthesias, dizziness, unsteady gait, seizure, mental status changes, bladder or bowel incontinence PSYCHIATRIC: Absent: anxiety, depression, suicidal or homicidal ideation, hallucinations. PHYSICAL EXAMINATION Vital Signs - 24 hr 06/27/16 06/27/16 09:57 14:17 Temperature 98.9 F 98.5 F Pulse Rate 76 87 Respiratory 20 16 Rate Blood Pressure 133/87 124/70 O2 Sat by Pulse 97 98 Oximetry (%) GENERAL: Awake, alert, and fully oriented, in no acute distress. HEAD: Normal with no signs of trauma. EYES: Pupils equal, round and reactive to light, extraocular movements intact, sclera anicteric, conjunctiva clear. No lid lag. EARS, NOSE, THROAT: Ears normal, nares patent, oropharynx clear without exudates. Moist mucous membranes. NECK: Normal range of motion, supple without lymphadenopathy, JVD, or masses. LUNGS: Breath sounds equal, clear to auscultation bilaterally. No wheezes, and no crackles. No accessory muscle use. HEART: Regular rate and rhythm, normal S1 and S2 without murmur, rub or gallop. ABDOMEN: Soft, tenderness around umbilicus and RLQ; no guarding, no rebound, no masses. No hepatomegaly or splenomegaly. MUSCULOSKELETAL: Normal range of motion at all joints. No bony deformities or tenderness. No CVA tenderness. UPPER EXTREMITIES: 2+ pulses, warm, well-perfused. No cyanosis. No clubbing. Cap refill <2 seconds. No peripheral edema. LOWER EXTREMITIES: 2+ pulses, warm, well-perfused. No calf tenderness. No peripheral edema. NEUROLOGICAL: Cranial nerves II-XII intact. Normal speech. Normal gait. PSYCHIATRIC: Cooperative. Good eye contact. Appropriate mood and affect. SKIN: Warm, dry, normal turgor, no rashes or lesions noted. ASSESSMENT/PLAN: This is a 31 year old woman with a PMH of anorexia admitted for recurrent SBO. Recurrent SBO --06/19 CTAP showed moderate small bowel obstruction dilation suspicious for partial SBO --06/21 KUB showed resolution of air distension of small bowel but moderate distension of sigmoid --06/27 KUB shows possible SBO --will get repeat CT with PO and IV contrast --NPO --possible NG tube --IV fluids Leukocytosis --WBC 15.6, afebrile --mild RLQ tenderness, will need to r/o appendicitis; also concern for microperforation v. translocation --start empiric Zosyn Anorexia nervosa --94.1 lbs F/E/N Fluids: D5NS @ 125mL/hr Electrolytes: replete as indicated Nutrition: NPO DVT prophylaxis: lovenox, oob, ambulation Dispo: continues to require inpatient care. Full Code. Visit type - Emergency Visit Emergency Visit: Yes ED Registration Date: 06/27/16 Care time: The patient presented to the Emergency Department on the above date and was hospitalized for further evaluation of their emergent condition. - New Patient This patient is new to me today: Yes Date on this admission: 06/27/16 - Critical Care Critical Care patient: No
[2016-06-27] MEDS ORDERED: DEXTROSE 5%-NORMAL SALINE 1,000 ML IV SCH (13:45)
[2016-06-27] MEDS ORDERED: PIPERACILLIN/TAZOB 3.375 GM/50 ML PRE-DOCKED IVPB SCH (14:15)
[2016-06-27] MEDS ORDERED: PIPERACILLIN/TAZOB 3.375 GM/50 ML PRE-DOCKED IVPB ONE (14:15)
--- NOTE | 2016-06-27 15:37 | CONSULT ---
Consult Consult Specialty:: infectious diseases Reason for Consultation:: bowel obstruction - History of Present Illness Chief Complaint: abd pain nausea and vomiting History of Present Illness: 31 year-old woman with a longstanding history of anorexia and who is presently inpatient at [facility], a residential program for the treatment of eating disorders. patient was very recently admitted with sbo and was treated conservatively and send home now she comes with abd pain on the rt side and associated nausea and vomiting and looking at the her xrays from last time when patient was discharged the obstruction probably was not completely resolved patient now feeling better She has maintained her anorexia by throwing up and dieting - History Source History Provided By: Patient Limitations to Obtaining History: No Limitations - Past Medical History Additional Medical History: Eating disorder - Alcohol/Substance Use Hx Alcohol Use: Yes - Smoking History Smoking history: Current every day smoker Have you smoked in the past 12 months: No Aproximately how many cigarettes per day: 5 - Social History ADL: Independent Home Medications - Allergies Allergies/Adverse Reactions: Allergies Allergy/AdvReac Type Severity Reaction Status Date / Time No Known Allergies Allergy Verified 06/19/16 13:55 - Home Medications Home Medications: Ambulatory Orders Escitalopram Oxalate [Lexapro -] 20 mg PO DAILY 06/19/16 L.acidoph,Paracasei, B.lactis [Probiotic] 1 each PO DAILY 06/19/16 Multivitamin [Poly-Vitamin] 1 each PO DAILY 06/19/16 [place]-3 Fatty Acids [Fish Oil] 720 mg PO DAILY 06/19/16 Ondansetron [Zofran *Odt*] 8 mg SL TID PRN #4 od.tablet 06/19/16 Prochlorperazine Maleate [Compazine] 5 mg PO PRN 06/19/16 Valerian Root 1,060 mg PO HS PRN 06/19/16 Melatonin 5 mg PO HS 06/27/16 Review of Systems - Review of Systems Constitutional: reports: No Symptoms Eyes: reports: No Symptoms HENT: reports: No Symptoms Neck: reports: No Symptoms Cardiovascular: reports: No Symptoms Respiratory: reports: No Symptoms Gastrointestinal: reports: Abdominal Pain (rt lower quadrant), Nausea, Vomiting Genitourinary: reports: No Symptoms Musculoskeletal: reports: No Symptoms Integumentary: reports: No Symptoms Neurological: reports: No Symptoms Endocrine: reports: No Symptoms Hematology/Lymphatic: reports: No Symptoms Physical Exam Vital Signs: Vital Signs Temperature 98.5 F 06/27/16 14:17 Pulse Rate 87 06/27/16 14:17 Respiratory Rate 16 06/27/16 14:17 Blood Pressure 124/70 06/27/16 14:17 O2 Sat by Pulse Oximetry (%) 98 06/27/16 14:17 Constitutional: Yes: Calm, Thin Eyes: Yes: Conjunctiva Clear HENT: Yes: Atraumatic Cardiovascular: Yes: Regular Rate and Rhythm Respiratory: Yes: Regular, CTA Bilaterally Gastrointestinal: Yes: Normal Bowel Sounds, Soft Musculoskeletal: Yes: WNL Extremities: Yes: WNL Integumentary: Yes: WNL Neurological: Yes: Alert, Oriented Psychiatric: Yes: Alert Imaging - Results X-ray: Report Reviewed, Image Reviewed Assessment/Plan This is a 31 year old woman with a PMH of anorexia admitted for recurrent SBO. Recurrent SBO Leukocytosis Anorexia nervosa thin abd pain plan patient who still has unresolved sbo will start on zosyn intially will give it for 48 hrs and see if everything is trending normal repeat ct scan to see the state os obstruction and patient having right lower quadrant pain
[2016-06-27] MEDS ORDERED: LORAZEPAM CARPU-JECT 2 MG/ML DISP.SYRIN IVPUSH ONE ×2 (18:04→20:11)
[2016-06-28] MEDS: PIPERACILLIN/TAZOB 3.375 GM/50 ML PRE-DOCKED IVPB SCH ×3 (00:29→18:13)
[2016-06-28] MEDS ORDERED: LORAZEPAM CARPU-JECT 2 MG/ML DISP.SYRIN ONE (05:04)
[2016-06-28 07:19] LABS: URINE APPEARANCE Clear; URINE BILIRUBIN Negative (NEGATIVE); URINE BLOOD Negative (NEGATIVE); URINE GLUCOSE (UA) Negative (NEGATIVE); URINE KETONE Negative (NEGATIVE); URINE LEUK ESTERASE Negative (NEGATIVE); URINE NITRITE Positive (NEGATIVE); URINE PROTEIN Negative (NEGATIVE); URINE UROBILINOGEN 0.2 E.U/dl (0.2-1.0)
[2016-06-28 07:20] LABS: URINE COLOR YELLOW
[2016-06-28 08:40] LABS: BASOPHIL 0.6 % (0-2.0); EOSINOPHIL 1.5 % (0-4.5); MCH 29.3 pg (25.7-33.7); MCHC 32.3 g/dl (32.0-36.0); MEAN CELL VOLUME 90.9 fl (80-96); MEAN PLT VOLUME 6.5 fl (7.5-11.1); NEUTROPHILS 76.2 % (42.8-82.8); PLATELET COUNT 477 K/MM3 (134-434); WHITE BLOOD COUNT 8.8 K/mm3 (4.0-10.0)
[2016-06-28 08:59] LABS: ALBUMIN 2.8 g/dl (3.5-5.0); ALK PHOS 35 U/L (32-92); ANION GAP 9 (8-16); BILIRUBIN,TOTAL 0.6 mg/dl (0.2-1.0); CALCIUM 8.6 mg/dl (8.4-10.2); CO2 25 mmol/L (22-28); CREATININE 0.6 mg/dl (0.6-1.3); GLUCOSE,RANDOM 98 mg/dl (74-106); MAGNESIUM 1.8 mg/dL (1.8-2.4); PHOSPHOROUS 3.7 mg/dl (2.5-4.6); SGOT/AST 12 U/L (10-42); TOT PROT 5.5 g/dl (6.4-8.3)
[2016-06-28 09:22] LABS: SGPT/ALT < 9 U/L (10-40)
--- NOTE | 2016-06-28 09:31 | PN ---
Physical Exam: SUBJECTIVE: Patient seen and examined, patient reports discomfort to nose, patient denies any nausea OBJECTIVE: patient is a 31 year-old woman with a longstanding history of anorexia, SBO (06/20-06/21/16) resolved with medical management. patient was admitted from the emergency department for SBO. Vital Signs Period Temp Pulse Resp BP Sys/Heard Pulse Ox Last 24 Hr 98.3 F-99.2 F 87-95 16-18 108-124/68-74 97-98 GENERAL: The patient is awake, alert, and fully oriented, in no acute distress. HEAD: Normal with no signs of trauma. EYES: PERRL, extraocular movements intact, sclera anicteric, conjunctiva clear. No ptosis. ENT: Ears normal, nares patent, oropharynx clear without exudates, moist mucous membranes. NECK: Trachea midline, full range of motion, supple. LUNGS: Breath sounds equal, clear to auscultation bilaterally, no wheezes, no crackles, no accessory muscle use. HEART: Regular rate and rhythm, S1, S2 without murmur, rub or gallop. ABDOMEN: Soft, flat, nondistended, hypoactive bowel sounds, no guarding, + right lower quadrant abdominal pain no hepatosplenomegaly, no masses. EXTREMITIES: 2+ pulses, warm, well-perfused, no edema. NEUROLOGICAL: Cranial nerves II through XII grossly intact. Normal speech, gait not observed. PSYCH: Normal mood, normal affect. SKIN: Warm, dry, normal turgor, no rashes or lesions noted Laboratory Results - last 24 hr 06/28/16 06/28/16 06/28/16 04:30 08:00 08:00 WBC 8.8 D RBC 3.51 L Hgb 10.3 L Hct 31.9 L MCV 90.9 MCHC 32.3 RDW 15.0 Plt Count 477 H MPV 6.5 L Neutrophils % 76.2 Lymphocytes % 16.1 D Monocytes % 5.6 Eosinophils % 1.5 Basophils % 0.6 Sodium 137 Potassium 4.0 Chloride 103 Carbon Dioxide 25 Anion Gap 9 BUN 7 D Creatinine 0.6 Creat Clearance w eGFR > 60 Random Glucose 98 Calcium 8.6 Phosphorus 3.7 Magnesium 1.8 Total Bilirubin 0.6 AST 12 D ALT < 9 L Alkaline Phosphatase 35 Total Protein 5.5 L Albumin 2.8 L Urine Color Yellow Urine Appearance Clear Urine pH 7.0 Ur Specific [place] 1.010 Urine Protein Negative Urine Glucose (UA) Negative Urine Ketones Negative Urine Blood Negative Urine Nitrite Positive Urine Bilirubin Negative Urine Urobilinogen 0.2 e.u/dl Ur Leukocyte Esterase Negative Active Medications Generic Name Dose Route Start Last Admin Trade Name Freq PRN Reason Stop Dose Admin Benzocaine/Menthol 1 each 06/28/16 09:15 Cepacol Lozenge - MM Q2H PRN SORE THROAT Enoxaparin Sodium 40 mg 06/28/16 10:00 06/28/16 09:27 Lovenox - SQ 40 mg DAILY MYRA Administration Dextrose/Sodium Chloride 1,000 mls @ 125 mls/hr 06/27/16 13:45 06/27/16 15:18 D5-Ns - IV 125 mls/hr ASDIR MYRA Administration Ondansetron HCl 4 mg 06/27/16 13:41 06/27/16 17:06 Zofran Injection IVPB 4 mg Q6H PRN Administration NAUSEA Piperacillin Sod/Tazobactam Sod 3.375 gm 06/27/16 22:45 06/28/16 09:27 Zosyn 3.375gm Ivpb (Pre-Docked) IVPB 3.375 gm Q8H-IV MYRA Administration IMAGING 06/19 CTAP showed moderate small bowel obstruction dilation suspicious for partial SBO 06/19 CTAP showed moderate small bowel obstruction dilation suspicious for partial SBO 06/21 KUB showed resolution of air distension of small bowel but moderate distension of sigmoid 06/27 KUB shows possible SBO 06/27 CTAP w/iv/oral contrast, increase small bowel dilation distal SBO, edema of cecum & ascending colon, small/moderate free fluid within pelvis ASSESSMENT/PLAN: 1) GI: SBO - ct scan of abd reviewed, + RLQ tenderness on exam ? early appy, case discussed with DARLIN Olguin (surgery), continue zosyn - continue NGT to LCWS - IVF - repeat KUB 2) ID - leukocytosis resolved, patient afebrile - Continue Zosyn 3) psych - pmh of deperession & anxiety - prn ativan F/E/N Fluids: D5NS @ 125mL/hr Electrolytes: replete as indicated Nutrition: NPO DVT prophylaxis: hold ac ? OR, oob, ambulation Dispo: continues to require inpatient care. Full Code Visit type - Emergency Visit Emergency Visit: Yes ED Registration Date: 06/27/16 Care time: The patient presented to the Emergency Department on the above date and was hospitalized for further evaluation of their emergent condition. - New Patient This patient is new to me today: No - Critical Care Critical Care patient: No - Discharge Referral Referred to [facility] Med P.C.: No
[2016-06-28] MEDS ORDERED: ACETAMINOPHEN 1000 MG/100 ML VIAL (NON FORMULARY) IVPB ONE (09:45)
[2016-06-28] MEDS ORDERED: ENOXAPARIN NA (PORCINE) 40 MG/0.4 ML DISP.SYRIN SQ SCH (10:00)
[2016-06-28] MEDS: PANTOPRAZOLE SODIUM 100 ML IVPB SCH (10:24)
--- NOTE | 2016-06-28 14:13 | CONSULT ---
Consultation: REQUESTING PROVIDER:General Surgery-Dr. Castelan CONSULT REQUEST: We have been asked to surgically evaluate this patient for abdominal pain. HISTORY OF PRESENT ILLNESS: The patient is a 31 yo female who presents with abd pain which began tuesday in the mid abdomen. She also had some nausea and emesis(non-bloody) associated with it. She recalls having a normal bowel movement on tuesday/tuesday. Currently she hasn't had any pain overnight and hasn't used any pain medications. No bowel function noted. She was recently admitted and treated for a similar symptoms to [place] 2 weeks ago. Since then she has been in a inpatient setting being treated for anorexia. She denies the use of laxatives and states that she was eating as per her program. PMHX: anorexia, depression, UTI() PSHX: denies REVIEW OF SYSTEMS: CONSTITUTIONAL: Absent: fever, chills CARDIOVASCULAR: Absent: chest pain, syncope, palpitations, irregular heart rate, lightheadedness RESPIRATORY: Absent: cough, shortness of breath, dyspnea with exertion GASTROINTESTINAL: Present: abdominal pain, abdominal distension, nausea, vomiting. No history of ulcers, no egd/colonoscopy GENITOURINARY: Absent: dysuria, frequency, urgency, hesitancy, hematuria. MUSCULOSKELETAL: Absent: myalgia, arthralgia, joint swelling, back pain, neck pain SKIN: Absent: rash, itching, pallor HEMATOLOGIC/IMMUNOLOGIC: Absent: easy bleeding, easy bruising, frequent infections NEUROLOGIC: Absent: headache, fdizziness, unsteady gait, seizure PHYSICAL EXAMINATION Vital Signs Temperature 99.2 F 06/28/16 06:00 Pulse Rate 90 06/28/16 06:00 Respiratory Rate 18 06/28/16 06:00 Blood Pressure 114/74 06/28/16 06:00 O2 Sat by Pulse Oximetry (%) 97 06/28/16 06:07 GENERAL: Awake, alert, and fully oriented, in no acute distress. HEAD: Normal with no signs of trauma. EYES: Pupils equal, round and reactive to light, sclera anicteric, conjunctiva clear. NECK: Normal range of motion, supple without lymphadenopathy, JVD, or masses. LUNGS: Breath sounds equal, clear to auscultation bilaterally. No wheezes, and no crackles. No accessory muscle use. HEART: Regular rate and rhythm, normal S1 and S2 without murmur, rub or gallop. ABDOMEN: Soft, nontender, not distended, normoactive bowel sounds, no guarding, no rebound, no masses. MUSCULOSKELETAL: Normal range of motion at all joints. No bony deformities or tenderness. No CVA tenderness. UPPER EXTREMITIES: 2+ pulses, warm, well-perfused. No cyanosis. Cap refill <2 seconds. No peripheral edema. LOWER EXTREMITIES: 2+ pulses, warm, well-perfused. No calf tenderness. No peripheral edema. NEUROLOGICAL: Normal speech, gait not observed. PSYCH: Cooperative. Good eye contact. Appropriate mood and affect. SKIN: Warm, dry, normal turgor, no rashes or lesions noted. LABS: Laboratory Results - last 24 hr 06/28/16 06/28/16 06/28/16 04:30 08:00 08:00 WBC 8.8 D RBC 3.51 L Hgb 10.3 L Hct 31.9 L MCV 90.9 MCHC 32.3 RDW 15.0 Plt Count 477 H MPV 6.5 L Neutrophils % 76.2 Lymphocytes % 16.1 D Monocytes % 5.6 Eosinophils % 1.5 Basophils % 0.6 Sodium 137 Potassium 4.0 Chloride 103 Carbon Dioxide 25 Anion Gap 9 BUN 7 D Creatinine 0.6 Creat Clearance w eGFR > 60 Random Glucose 98 Calcium 8.6 Phosphorus 3.7 Magnesium 1.8 Total Bilirubin 0.6 AST 12 D ALT < 9 L Alkaline Phosphatase 35 Total Protein 5.5 L Albumin 2.8 L Urine Color Yellow Urine Appearance Clear Urine pH 7.0 Ur Specific [place] 1.010 Urine Protein Negative Urine Glucose (UA) Negative Urine Ketones Negative Urine Blood Negative Urine Nitrite Positive Urine Bilirubin Negative Urine Urobilinogen 0.2 e.u/dl Ur Leukocyte Esterase Negative CT scan-06/27-with oral/iv contrast-edema to cecum/ascending colon. Appendix appears unremarkable. small bowel dilatation with distal SBO. CT scan 06/19- PSBO with no evidence cause. Appendix appears normal. Problem List - Problems (1) Partial small bowel obstruction Assessment/Plan: Pt with admission for bowel obstruction being treated with NGT decompression/npo /iv hydration. She remains stable with resolved leukocytosis, receiving IV zosyn. Repeat xray today revealed contrast to the colon with partially dilated small bowel/edematous cecum. The ngt outpt remains minimal (good placement seen on xray). Recommend to continue npo decompression/iv hydration. Cbc/chem WNL. Continue to trend them daily. Her abd remains benign. Consult for GI placed, pt with repeat PSBO and cecal/ ascending edema. D/w Dr. Castelan, will continue to follow the patient. Code(s): K56.69 - OTHER INTESTINAL OBSTRUCTION Visit type - Case Type Case Type: ED Admission - Emergency Emergency Visit: Yes ED Registration Date: 06/27/16 Care time: The patient presented to the Emergency Department on the above date and was hospitalized for further evaluation of their emergent condition. - New patient This patient is new to me today: Yes Date on this admission: 06/28/16 - Critical Care Critical Care patient: No
--- NOTE | 2016-06-28 16:04 | PN ---
Progress Note, Physician History of Present Illness: patient stable feeling well ct scan finding noted with ng tube in place - Current Medication List Current Medications: Active Medications Benzocaine/Menthol (Cepacol Lozenge -) 1 each MM Q2H PRN PRN Reason: SORE THROAT Dextrose/Sodium Chloride (D5-Ns -) 1,000 mls @ 125 mls/hr IV ASDIR MYRA Last Admin: 06/27/16 15:18 Dose: 125 mls/hr Pantoprazole Sodium (Protonix 40mg Ivpb (Pre-Docked)) 100 mls @ 200 mls/hr IVPB DAILY MYRA Last Admin: 06/28/16 10:24 Dose: 200 mls/hr Lorazepam (Ativan Injection -) 0.5 mg IVPUSH TID PRN PRN Reason: ANXIETY Ondansetron HCl (Zofran Injection) 4 mg IVPB Q6H PRN PRN Reason: NAUSEA Last Admin: 06/27/16 17:06 Dose: 4 mg Piperacillin Sod/Tazobactam Sod (Zosyn 3.375gm Ivpb (Pre-Docked)) 3.375 gm IVPB Q8H-IV MYRA Last Admin: 06/28/16 09:27 Dose: 3.375 gm - Objective Vital Signs: Vital Signs Temperature 99.2 F 06/28/16 06:00 Pulse Rate 90 06/28/16 06:00 Respiratory Rate 18 06/28/16 06:00 Blood Pressure 114/74 06/28/16 06:00 O2 Sat by Pulse Oximetry (%) 97 06/28/16 06:07 Constitutional: Yes: No Distress, Calm, Thin Cardiovascular: Yes: Regular Rate and Rhythm Respiratory: Yes: Regular, CTA Bilaterally Musculoskeletal: Yes: WNL Extremities: Yes: WNL Neurological: Yes: Alert, Oriented Psychiatric: Yes: Alert Labs: CBC, BMP 06/28/16 08:00 06/28/16 08:00 Assessment/Plan This is a 31 year old woman with a PMH of anorexia admitted for recurrent SBO. Recurrent SBO Leukocytosis Anorexia nervosa thin abd pain plan continue abx agree with gi input
[2016-06-28] MEDS: LORAZEPAM CARPU-JECT 2 MG/ML DISP.SYRIN IVPUSH PRN ×2 (16:31→20:19)
[2016-06-28] MEDS ORDERED: DEXTROSE 5%-NORMAL SALINE 1,000 ML IV SCH (16:42)
[2016-06-28] MEDS ORDERED: ZOLPIDEM TARTRATE 5 MG TABLET PO ONE (21:02)
[2016-06-29] MEDS: PIPERACILLIN/TAZOB 3.375 GM/50 ML PRE-DOCKED IVPB SCH ×2 (01:29→09:00)
[2016-06-29] MEDS: LORAZEPAM CARPU-JECT 2 MG/ML DISP.SYRIN IVPUSH PRN ×3 (03:50→21:14)
[2016-06-29] MEDS: PANTOPRAZOLE SODIUM 100 ML IVPB SCH (10:00)
[2016-06-29 10:29] LABS: BASOPHIL 0.6 % (0-2.0); EOSINOPHIL 2.3 % (0-4.5); MCH 28.7 pg (25.7-33.7); MCHC 31.9 g/dl (32.0-36.0); MEAN CELL VOLUME 89.9 fl (80-96); MEAN PLT VOLUME 6.7 fl (7.5-11.1); PLATELET COUNT 462 K/MM3 (134-434); RDW 15.1 % (11.6-15.6); WHITE BLOOD COUNT 7.5 K/mm3 (4.0-10.0)
[2016-06-29 10:41] LABS: ANION GAP 8 (8-16); CALCIUM 8.5 mg/dl (8.4-10.2); CO2 25 mmol/L (22-28); CREATININE 0.5 mg/dl (0.6-1.3); GLUCOSE,RANDOM 88 mg/dl (74-106)
[2016-06-29] MEDS: BENZOCAINE/MENTH/CETYLPYRD CL 1 EACH LOZENGE MM PRN ×2 (11:25→16:05)
--- NOTE | 2016-06-29 12:32 | PN ---
Physical Exam: SUBJECTIVE: Patient seen and examined, patient anxious feels hungry denies any abdominal pain, patient reports flatulence OBJECTIVE:patient is a 31 year-old woman with a longstanding history of anorexia , SBO (06/20-06/21/16) resolved with medical management. patient was admitted from the emergency department for SBO. Vital Signs Period Temp Pulse Resp BP Sys/Heard Pulse Ox Last 24 Hr 98.5 F-98.8 F 75-84 17-17 116-116/75-80 94-98 GENERAL: The patient is awake, alert, and fully oriented, in no acute distress. HEAD: Normal with no signs of trauma. EYES: PERRL, extraocular movements intact, sclera anicteric, conjunctiva clear. No ptosis. ENT: Ears normal, nares patent, oropharynx clear without exudates, moist mucous membranes. NECK: Trachea midline, full range of motion, supple. LUNGS: Breath sounds equal, clear to auscultation bilaterally, no wheezes, no crackles, no accessory muscle use. HEART: Regular rate and rhythm, S1, S2 without murmur, rub or gallop. ABDOMEN: Soft, nontender, nondistended, faint bowel sounds, no guarding, no rebound, no hepatosplenomegaly, no masses.NGT less than 100 mL residual EXTREMITIES: 2+ pulses, warm, well-perfused, no edema. NEUROLOGICAL: Cranial nerves II through XII grossly intact. Normal speech, gait not observed. PSYCH: Normal mood, normal affect. SKIN: Warm, dry, normal turgor, no rashes or lesions noted Laboratory Results - last 24 hr 06/29/16 06/29/16 06:00 Unknown WBC 7.5 RBC 3.39 L Hgb 9.7 L Hct 30.5 L MCV 89.9 MCHC 31.9 L RDW 15.1 Plt Count 462 H MPV 6.7 L Neutrophils % 75.0 Lymphocytes % 15.1 Monocytes % 7.0 Eosinophils % 2.3 Basophils % 0.6 Sodium 136 Potassium 3.6 Chloride 103 Carbon Dioxide 25 Anion Gap 8 BUN < 5 L D Creatinine 0.5 L Random Glucose 88 Calcium 8.5 Active Medications Generic Name Dose Route Start Last Admin Trade Name Freq PRN Reason Stop Dose Admin Benzocaine/Menthol 1 each 06/28/16 09:15 06/29/16 11:25 Cepacol Lozenge - MM 1 each Q2H PRN Administration SORE THROAT Pantoprazole Sodium 100 mls @ 200 mls/hr 06/28/16 10:00 06/29/16 10:00 Protonix 40mg Ivpb (Pre-Docked) IVPB 200 mls/hr DAILY MYRA Administration Dextrose/Sodium Chloride 1,000 mls @ 100 mls/hr 06/28/16 16:42 D5-Ns - IV ASDIR MYRA Lorazepam 0.5 mg 06/28/16 09:58 06/29/16 11:25 Ativan Injection - IVPUSH 0.5 mg TID PRN Administration ANXIETY Ondansetron HCl 4 mg 06/27/16 13:41 06/27/16 17:06 Zofran Injection IVPB 4 mg Q6H PRN Administration NAUSEA Piperacillin Sod/Tazobactam Sod 3.375 gm 06/27/16 22:45 06/29/16 09:00 Zosyn 3.375gm Ivpb (Pre-Docked) IVPB 3.375 gm Q8H-IV MYRA Administration IMAGING 06/19 CTAP showed moderate small bowel obstruction dilation suspicious for partial SBO 06/19 CTAP showed moderate small bowel obstruction dilation suspicious for partial SBO 06/21 KUB showed resolution of air distension of small bowel but moderate distension of sigmoid 06/27 KUB shows possible SBO 06/27 CTAP w/iv/oral contrast, increase small bowel dilation distal SBO, edema of cecum & ascending colon, small/moderate free fluid within pelvis 06/28 KUB incomplete small bowel obstruction ASSESSMENT/PLAN: 1) GI: SBO - repeat KUB today, partial SBO noted, continue NGT to LCWS - IVF - repeat KUB in AM - appreciate GI input - surgery consulted and followed 2) ID - leukocytosis resolved, patient afebrile - Continue empiric Zosyn 3) psych - pmh of deperession & anxiety - prn ativan F/E/N Fluids: D5NS @ 100mL/hr Electrolytes: replete as indicated Nutrition: NPO DVT prophylaxis: hold ac ? OR, oob, ambulation Dispo: continues to require inpatient care. Full Code Visit type - Emergency Visit Emergency Visit: Yes ED Registration Date: 06/27/16 Care time: The patient presented to the Emergency Department on the above date and was hospitalized for further evaluation of their emergent condition. - New Patient This patient is new to me today: No - Critical Care Critical Care patient: No - Discharge Referral Referred to [facility] Med P.C.: No
--- NOTE | 2016-06-29 15:30 | PN ---
Progress Note, Physician History of Present Illness: patient stable no new issues ng tube bothering her - Current Medication List Current Medications: Active Medications Benzocaine/Menthol (Cepacol Lozenge -) 1 each MM Q2H PRN PRN Reason: SORE THROAT Last Admin: 06/29/16 11:25 Dose: 1 each Pantoprazole Sodium (Protonix 40mg Ivpb (Pre-Docked)) 100 mls @ 200 mls/hr IVPB DAILY MYRA Last Admin: 06/29/16 10:00 Dose: 200 mls/hr Dextrose/Sodium Chloride (D5-Ns -) 1,000 mls @ 100 mls/hr IV ASDIR MYRA Lorazepam (Ativan Injection -) 0.5 mg IVPUSH TID PRN PRN Reason: ANXIETY Last Admin: 06/29/16 11:25 Dose: 0.5 mg Ondansetron HCl (Zofran Injection) 4 mg IVPB Q6H PRN PRN Reason: NAUSEA Last Admin: 06/27/16 17:06 Dose: 4 mg Piperacillin Sod/Tazobactam Sod (Zosyn 3.375gm Ivpb (Pre-Docked)) 3.375 gm IVPB Q8H-IV MYRA Last Admin: 06/29/16 09:00 Dose: 3.375 gm - Objective Vital Signs: Vital Signs Temperature 98.7 F 06/29/16 14:20 Pulse Rate 93 H 06/29/16 14:20 Respiratory Rate 18 06/29/16 14:20 Blood Pressure 117/75 06/29/16 14:20 O2 Sat by Pulse Oximetry (%) 93 L 06/29/16 14:20 Constitutional: Yes: No Distress, Calm Eyes: Yes: Conjunctiva Clear Cardiovascular: Yes: Regular Rate and Rhythm Respiratory: Yes: Regular, CTA Bilaterally Gastrointestinal: Yes: Normal Bowel Sounds, Soft Musculoskeletal: Yes: WNL Extremities: Yes: WNL Neurological: Yes: Alert, Oriented Psychiatric: Yes: Alert Labs: CBC, BMP 06/29/16 Unknown 06/29/16 06:00 Assessment/Plan This is a 31 year old woman with a PMH of anorexia admitted for recurrent SBO. Recurrent SBO Leukocytosis Anorexia nervosa thin abd pain plan continue abx await for final opinions will stop abx
[2016-06-29] MEDS ORDERED: ACETAMINOPHEN 1000 MG/100 ML VIAL (NON FORMULARY) IVPB ONE (16:00)
--- NOTE | 2016-06-29 17:10 | PN ---
Progress Note (short form) - Note Progress Note: Pt seen and examined this am, she hadn't passed any flatus. Spoke with the nursing staff for an update and the patient has been oob/ambulating and has passed flatus several times. Vital Signs Period Temp Pulse Resp BP Sys/Heard Pulse Ox Last 24 Hr 98.5 F-98.7 F 84-93 17-18 116-117/75-75 93-96 ngt-minimal ABD: soft, non-distended, non-tender. CBC, BMP 06/29/16 Unknown 06/29/16 06:00 AXR(06/29)-non-obstructive pattern, decrease SB distention Problem List - Problems (1) Partial small bowel obstruction Assessment/Plan: Resolving PSBO, D/w Dr. Castelan, NGT to be clamped and residuals checked overnight. If outpt low, ngt to be removed in the am. Surgery/medicine to see the patient and may possibly begin clears once ngt out. Hold narcotics Code(s): K56.69 - OTHER INTESTINAL OBSTRUCTION
[2016-06-29] MEDS ORDERED: ZOLPIDEM TARTRATE 5 MG TABLET PO ONE (22:09)
[2016-06-30] MEDS: LORAZEPAM CARPU-JECT 2 MG/ML DISP.SYRIN IVPUSH PRN ×2 (04:49→20:06)
[2016-06-30] MEDS: BENZOCAINE/MENTH/CETYLPYRD CL 1 EACH LOZENGE MM PRN (08:45)
[2016-06-30] MEDS: PANTOPRAZOLE SODIUM 100 ML IVPB SCH (09:09)
--- NOTE | 2016-06-30 09:31 | PN ---
Progress Note (short form) - Note Progress Note: The overnight staff pulled her ngt this am, the patient had low residuals and was passing flatus. In addition, the pt has no complaints of nausea/abd pain and had a bowel movement and passed flatus. Vital Signs Period Temp Pulse Resp BP Sys/Heard Pulse Ox Last 24 Hr 98.5 F-98.7 F 67-93 16-18 112-117/73-75 93-98 PE: GEN: appears comfortable ABD; soft, non-distended, non-tender. Problem List - Problems (1) Partial small bowel obstruction Assessment/Plan: Resolving PSBO, ngt remove and patient with BM. To start clear diet Continue oob/ambulate Will advance her diet as tolerated, if she develops abdominal pain, nausea or emesis. Will then resume npo. D/w Dr. Castelan Code(s): K56.69 - OTHER INTESTINAL OBSTRUCTION
[2016-06-30] MEDS ORDERED: ESCITALOPRAM OXALATE 20 MG TABLET (FP) PO SCH (12:30)
--- NOTE | 2016-06-30 12:41 | PN ---
Physical Exam: SUBJECTIVE: Patient seen and examined, patient reports feeling well, NGT removed this AM by surgery, clear liquid tray, denies any nausea or abdominal pain. OBJECTIVE:patient is a 31 year-old woman with a longstanding history of anorexia , SBO (06/20-06/21/16) resolved with medical management. patient was admitted from the emergency department for SBO. Vital Signs Period Temp Pulse Resp BP Sys/Heard Pulse Ox Last 24 Hr 98.5 F-98.7 F 67-93 16-18 112-117/73-75 93-98 GENERAL: The patient is awake, alert, and fully oriented, in no acute distress. HEAD: Normal with no signs of trauma. EYES: PERRL, extraocular movements intact, sclera anicteric, conjunctiva clear. No ptosis. ENT: Ears normal, nares patent, oropharynx clear without exudates, moist mucous membranes. NECK: Trachea midline, full range of motion, supple. LUNGS: Breath sounds equal, clear to auscultation bilaterally, no wheezes, no crackles, no accessory muscle use. HEART: Regular rate and rhythm, S1, S2 without murmur, rub or gallop. ABDOMEN: Soft, flat, nontender, nondistended, hypoactive bowel sounds, no guarding, no rebound, no hepatosplenomegaly, no masses. EXTREMITIES: 2+ pulses, warm, well-perfused, no edema. NEUROLOGICAL: Cranial nerves II through XII grossly intact. Normal speech, gait not observed. PSYCH: Normal mood, normal affect. SKIN: Warm, dry, normal turgor, no rashes or lesions noted Active Medications Generic Name Dose Route Start Last Admin Trade Name Freq PRN Reason Stop Dose Admin Benzocaine/Menthol 1 each 06/28/16 09:15 06/30/16 08:45 Cepacol Lozenge - MM 1 each Q2H PRN Administration SORE THROAT Escitalopram Oxalate 20 mg 06/30/16 12:30 Lexapro - PO DAILY MYRA Pantoprazole Sodium 100 mls @ 200 mls/hr 06/28/16 10:00 06/30/16 09:09 Protonix 40mg Ivpb (Pre-Docked) IVPB 200 mls/hr DAILY MYRA Administration Dextrose/Sodium Chloride 1,000 mls @ 100 mls/hr 06/28/16 16:42 D5-Ns - IV ASDIR MYRA Lorazepam 0.5 mg 06/28/16 09:58 06/30/16 04:49 Ativan Injection - IVPUSH 0.5 mg TID PRN Administration ANXIETY Ondansetron HCl 4 mg 06/27/16 13:41 06/27/16 17:06 Zofran Injection IVPB 4 mg Q6H PRN Administration NAUSEA IMAGING 06/19 CTAP showed moderate small bowel obstruction dilation suspicious for partial SBO 06/19 CTAP showed moderate small bowel obstruction dilation suspicious for partial SBO 06/21 KUB showed resolution of air distension of small bowel but moderate distension of sigmoid 06/27 KUB shows possible SBO 06/27 CTAP w/iv/oral contrast, increase small bowel dilation distal SBO, edema of cecum & ascending colon, small/moderate free fluid within pelvis 06/28 KUB incomplete small bowel obstruction 06/29 KUB nonobstructive gas pattern ASSESSMENT/PLAN: 1) GI: SBO - NGT removed yesterday evening patient tolerating clear liquid tray will advance to full then soft diet - GI consulted, Dr. Wild, patient will require outpatient follow-up within 2 weeks - surgery consulted and followed 2) ID - leukocytosis resolved, patient afebrile - Zosyn discontinued 3) psych - pmh of deperession & anxiety - restart Lexapro F/E/N advance diet as tolerated Electrolytes: replete as indicated Nutrition: NPO DVT prophylaxis: oob, ambulation Dispo: patient is tolerating soft diet may discharge tomorrow. Full Code Visit type - Emergency Visit Emergency Visit: Yes ED Registration Date: 06/27/16 Care time: The patient presented to the Emergency Department on the above date and was hospitalized for further evaluation of their emergent condition. - New Patient This patient is new to me today: No - Critical Care Critical Care patient: No - Discharge Referral Referred to [facility] Med P.C.: No
--- NOTE | 2016-06-30 13:47 | PN ---
Progress Note (short form) - Note Progress Note: Patient seen and consult dictated. Patient with hx of anorexia and admission with N/V ?SBO. Has improved with NG decompression and is now tolerating liquids PO. No N/V or cramps. Initial elevated WBC now normal ??had concurrent viral illness with ileus (rather than mechanical obstruction?. In view of clinical improvement, would continue to advance diet as tolerated and discharge if stable/tolerating PO.
--- NOTE | 2016-06-30 16:11 | PN ---
Progress Note, Physician History of Present Illness: doing well ng tube removed - Current Medication List Current Medications: Active Medications Benzocaine/Menthol (Cepacol Lozenge -) 1 each MM Q2H PRN PRN Reason: SORE THROAT Last Admin: 06/30/16 08:45 Dose: 1 each Escitalopram Oxalate (Lexapro -) 20 mg PO DAILY [facility] Dextrose/Sodium Chloride (D5-Ns -) 1,000 mls @ 100 mls/hr IV ASDIR MYRA Lorazepam (Ativan Injection -) 0.5 mg IVPUSH TID PRN PRN Reason: ANXIETY Last Admin: 06/30/16 04:49 Dose: 0.5 mg Ondansetron HCl (Zofran Injection) 4 mg IVPB Q6H PRN PRN Reason: NAUSEA Last Admin: 06/27/16 17:06 Dose: 4 mg Pantoprazole Sodium (Protonix -) 40 mg PO DAILY [facility] - Objective Vital Signs: Vital Signs Temperature 97.9 F 06/30/16 14:10 Pulse Rate 84 06/30/16 14:10 Respiratory Rate 18 06/30/16 14:10 Blood Pressure 115/73 06/30/16 14:10 O2 Sat by Pulse Oximetry (%) 100 06/30/16 14:10 Constitutional: Yes: No Distress, Calm HENT: Yes: Atraumatic Neck: Yes: Supple Cardiovascular: Yes: Regular Rate and Rhythm Respiratory: Yes: Regular, CTA Bilaterally Gastrointestinal: Yes: Normal Bowel Sounds, Soft Musculoskeletal: Yes: WNL Extremities: Yes: WNL Neurological: Yes: Alert, Oriented Psychiatric: Yes: Alert, Oriented Labs: CBC, BMP 06/29/16 Unknown 06/29/16 06:00 Assessment/Plan This is a 31 year old woman with a PMH of anorexia admitted for recurrent SBO. Recurrent SBO Leukocytosis Anorexia nervosa thin abd pain plan stopped abx continue mgmt
--- NOTE | 2016-06-30 16:20 | CONS ---
DATE OF CONSULTATION: 06/30/2016 Asked to evaluate this 31-year-old female with a history of anorexia nervosa admitted to [facility] with nausea, vomiting, and a possible small bowel obstruction. The patient has a prior history of anorexia nervosa but no abdominal surgeries or history of obstruction. She has been in a residential program in [place] for eating disorders and was admitted on June 27 with the nausea, vomiting, and an abdominal x-ray suggestive of a small bowel obstruction. A CAT scan of the abdomen and pelvis also showed increased small bowel dilatation consistent with a distal small bowel obstruction. There was also a report of some concentric edema at the level of the cecum and the ascending colon. The patient was treated conservatively with IV fluids, and after several days, she has clinically improved and with the NG tube that was previously placed removed. She is currently seen resting without any abdominal complaints. She is now tolerating liquids without any nausea or vomiting. A repeat abdominal x-ray done yesterday shows a decrease in the amount of distention in the small bowel loops and no evidence of obstruction. PHYSICAL EXAMINATION: General: The patient is a well-developed, thin female. HEENT: [place] conjunctiva. Abdomen: Soft, flat. Normoactive bowel sounds and no tenderness or mass. LABORATORY TESTS: Include a current white count of 7.5. Her admission white count was 15.8. Her hemoglobin is 9.7 with a hematocrit of 30.5. Her electrolytes are normal. Patient without evidence of bowel obstruction at the present time and most likely had an ileus rather than an actual mechanical obstruction. This may have been related to her eating disorder with some transient dysmotility. In addition, she did have an increased white count at the time of admission and may have had a infection such as a viral illness. She is tolerating liquids, and her diet will slowly be advanced today with plans for discharge if she tolerates p.o. We will follow as needed. MAKAYLA TRIMBLE M.D. [facility]/[id number]
[2016-06-30] MEDS ORDERED: ZOLPIDEM TARTRATE 5 MG TABLET PO PRN (20:56)
[2016-07-01] MEDS: LORAZEPAM CARPU-JECT 2 MG/ML DISP.SYRIN IVPUSH PRN (06:07)
--- NOTE | 2016-07-01 07:47 | PN ---
Progress Note (short form) - Note Progress Note: 31 yo female admitted with PSBO. She has been managed conservatively. + flatus & bm Voiding spontaneously. Ambulating hallways. Tolerating PO diet. AVSS. Afebrile PE General: NAD Pulm: cta b/l anteriorly Cor: rrr ABD: Soft. ND. NT. +bs LE: soft. nt b/l Problem List - Problems (1) Partial small bowel obstruction Assessment/Plan: Patient's PSBO has resolved with conservative management. Per Dr. Wild's note, she is to f/u for further out-patient testing Cleared for discharge from a surgical standpoint General surgery service is signing-off Code(s): K56.69 - OTHER INTESTINAL OBSTRUCTION
--- NOTE | 2016-07-01 08:44 | DS ---
Physical Exam: SUBJECTIVE: Patient seen and examined, reports feeling well, tolerating soft diet. OBJECTIVE: patient is a 31 year-old woman with a longstanding history of anorexia and who is presently inpatient at [facility], a residential program for the treatment of eating disorders. She presents to the ED today with abdominal pain, nausea, and vomiting since last night. Patient was hospitalized from 06/19-06/21/16 here at for a partial SBO and hyponatremia. She was treated conservatively with bowel rest and IV fluids. She returned to the facility and has been following a regular diet for the past 5 days. Last night she developed abdominal pain which felt similar to the pain she had previously. She went to bed. When she awoke this morning she felt nauseous and vomited her dinner from last night as well as bile so she came to the ED. KUB imaging shows a partial SBO. She had a bowel movement yesterday which she says was normal. She thinks she has been passing flatus but is not sure. She denies fever, sweats , chills. ER course was notable for: (1) T 98.4, BP 124/70, p 87 (2) WBC 15.6 (3) KUB xray: possible SBO Vital Signs Period Temp Pulse Resp BP Sys/Heard Pulse Ox Last 24 Hr 97.9 F-98.4 F 73-84 16-18 94-115/51-73 96-100 PHYSICAL EXAM GENERAL: The patient is awake, alert, and fully oriented, in no acute distress. HEAD: Normal with no signs of trauma. EYES: PERRL, extraocular movements intact, sclera anicteric, conjunctiva clear. ENT: Ears normal, nares patent, oropharynx clear without exudates, moist mucous membranes. NECK: Trachea midline, full range of motion, supple. LUNGS: Breath sounds equal, clear to auscultation bilaterally, no wheezes, no crackles, no accessory muscle use. HEART: Regular rate and rhythm, S1, S2 without murmur, rub or gallop. ABDOMEN: Soft, nontender, flat, +BS in all 4 quadrants, no guarding, no rebound , no hepatosplenomegaly, no masses. EXTREMITIES: 2+ pulses, warm, well-perfused, no edema. NEUROLOGICAL: Cranial nerves II through XII grossly intact. Normal speech, gait not observed. PSYCH: Normal mood, normal affect. SKIN: Warm, dry, normal turgor, no rashes or lesions noted. LABS CBC WBC 7.5 K/mm3 (4.0-10.0) 06/29/16 Unknown RBC 3.39 M/mm3 (3.60-5.2) L 06/29/16 Unknown Hgb 9.7 GM/dl (10.7-15.3) L 06/29/16 Unknown Hct 30.5 % (32.4-45.2) L 06/29/16 Unknown MCV 89.9 fl (80-96) 06/29/16 Unknown MCHC 31.9 g/dl (32.0-36.0) L 06/29/16 Unknown RDW 15.1 % (11.6-15.6) 06/29/16 Unknown Plt Count 462 K/MM3 (134-434) H 06/29/16 Unknown MPV 6.7 fl (7.5-11.1) L 06/29/16 Unknown Neutrophils % 75.0 % (42.8-82.8) 06/29/16 Unknown Lymphocytes % 15.1 % (8-40) 06/29/16 Unknown Monocytes % 7.0 % (3.8-10.2) 06/29/16 Unknown Eosinophils % 2.3 % (0-4.5) 06/29/16 Unknown Basophils % 0.6 % (0-2.0) 06/29/16 Unknown CMP Sodium 136 mmol/L (136-145) 06/29/16 06:00 Potassium 3.6 mmol/L (3.5-5.1) 06/29/16 06:00 Chloride 103 mmol/L (98-107) 06/29/16 06:00 Carbon Dioxide 25 mmol/L (22-28) 06/29/16 06:00 Anion Gap 8 (8-16) 06/29/16 06:00 BUN < 5 mg/dl (7-18) L D 06/29/16 06:00 Creatinine 0.5 mg/dl (0.6-1.3) L 06/29/16 06:00 Creat Clearance w eGFR > 60 (>60) 06/28/16 08:00 Random Glucose 88 mg/dl (74-106) 06/29/16 06:00 Calcium 8.5 mg/dl (8.4-10.2) 06/29/16 06:00 Phosphorus 3.7 mg/dl (2.5-4.6) 06/28/16 08:00 Magnesium 1.8 mg/dL (1.8-2.4) 06/28/16 08:00 Total Bilirubin 0.6 mg/dl (0.2-1.0) 06/28/16 08:00 AST 12 U/L (10-42) D 06/28/16 08:00 ALT < 9 U/L (10-40) L 06/28/16 08:00 Alkaline Phosphatase 35 U/L (32-92) 06/28/16 08:00 Total Protein 5.5 g/dl (6.4-8.3) L 06/28/16 08:00 Albumin 2.8 g/dl (3.5-5.0) L 06/28/16 08:00 Lipase 74 U/L (22-51) H 06/27/16 10:14 Microbiology 06/27/16 18:20 Blood - Peripheral Venous Blood Culture - Preliminary NO GROWTH OBTAINED AFTER 72 HOURS, INCUBATION TO CONTINUE FOR 2 DAYS. 06/27/16 18:20 Blood - Peripheral Venous Blood Culture - Preliminary NO GROWTH OBTAINED AFTER 72 HOURS, INCUBATION TO CONTINUE FOR 2 DAYS. 06/28/16 04:30 Urine - Urine Clean Catch Urine Culture - Final NO GROWTH OBTAINED IMAGING 06/19 CTAP showed moderate small bowel obstruction dilation suspicious for partial SBO 06/19 CTAP showed moderate small bowel obstruction dilation suspicious for partial SBO 06/21 KUB showed resolution of air distension of small bowel but moderate distension of sigmoid 06/27 KUB shows possible SBO 06/27 CTAP w/iv/oral contrast, increase small bowel dilation distal SBO, edema of cecum & ascending colon, small/moderate free fluid within pelvis 06/28 KUB incomplete small bowel obstruction 06/29 KUB nonobstructive gas pattern HOSPITAL COURSE: patient was admitted from the emergency department for a SBO. NGT was placed on hosptial day 1. serial abd xrays were completed. on 06/29, kub resulted as nonobstructive gas patten, she was started on clear liquid diet. patient was eventually advanced to a soft diet which she tolerated for 24 hours. GI consulted, Dr. Wild, patient will require outpatient follow-up within 2 weeks. General surgery, Dr Castelan, was consulted and followed. upon arrival to the emergency department she was noted to have leukocytosis which resolved. Patient remained afebrile. zosyn was given for 72 hours for empiric coverage. patient has a pmh of deperession & anxiety. Lexapro was restarted on 06/30/16. Date of Admission:06/27/16 Date of Discharge: 07/01/16 Minutes to complete discharge: 45 Discharge Summary Reason For Visit: PARTIAL SMALL BOWEL OBSTRUCTION Current Active Problems Partial small bowel obstruction (Acute) Condition: Improved - Instructions Diet, Activity, Other Instructions: resume soft diet small frequent amounts of fluid throughout the day please follow up with GI within 2 weeks if fever, abdominal pain, or vomiting develops please return to the emergency department Referrals: Darnell Wild MD [Staff Physician] - Disposition: HOME - Home Medications Comprehensive Discharge Medication List: Ambulatory Orders Escitalopram Oxalate [Lexapro -] 20 mg PO DAILY 06/19/16 L.acidoph,Paracasei, B.lactis [Probiotic] 1 each PO DAILY 06/19/16 Multivitamin [Poly-Vitamin] 1 each PO DAILY 06/19/16 [place]-3 Fatty Acids [Fish Oil] 720 mg PO DAILY 06/19/16 Ondansetron [Zofran *Odt*] 8 mg SL TID PRN #4 od.tablet 06/19/16 Prochlorperazine Maleate [Compazine] 5 mg PO PRN 06/19/16 Valerian Root 1,060 mg PO HS PRN 06/19/16 Melatonin 5 mg PO HS 06/27/16 This patient is new to me today: No Emergency Visit: Yes ED Registration Date: 06/27/16 Care time: The patient presented to the Emergency Department on the above date and was hospitalized for further evaluation of their emergent condition. Critical Care patient: No - Discharge Referral Referred to [facility] Med [facility] No
[2016-07-01 09:00] VITALS: BP 108/61; PULSE 104; TEMP 97.7
[2016-07-01] MEDS ORDERED: PANTOPRAZOLE 40 MG TABLET (FP) PO SCH (10:00)
== END 2016-07-01 10:22 | disposition home or self-care (01) | DRG 389 ==
LOC: FER 09:56 → FM/S 13:12 → OBSVTOIN 13:50
PROVIDERS: ADMIT Internal Medicine; ATTEND Nurse Practitioner Family
PROC: 0D9670Z Drainage of Stomach with Drainage Device, Via Natural or Artificial Opening (ICD-10-PCS; principal; 2016-06-27)
DX: K56.69 Other intestinal obstruction (principal); F50.00 Anorexia nervosa, unspecified; Z68.1 Body mass index [BMI] 19.9 or less, adult; D72.829 Elevated white blood cell count, unspecified; Z72.0 Tobacco use; F41.9 Anxiety disorder, unspecified; F32.9 Major depressive disorder, single episode, unspecified
CPT/HCPCS: 36415; 71010-TC; 74020-TC; 74177-TC; 80048; 80053; 81003; 83690; 83735; 84100; 84703; 85025; 85027; 87040; 87086; 99283-25; G0378